=== PATIENT | male | born 1975 | race Caucasian/White ===

== ENCOUNTER 2024-07-07 08:32 | Outpatient (AMB) | payer OTHER, SELFPAY ==
--- NOTE | 2024-07-07 08:39 | AM.OFFWIN_ITS ---
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 Patient Tobacco Use Status: Former Tobacco user Allergies No Known Allergies Allergy (Verified 07/07/24 08:39) Do you need a note to return to daycare/school/sports/work: No HPI HPI Comments History of Present Illness Details History of Present Illness - The patient is a 49-year-old male pres enting with left knee pain. - Incident occurred 3 to 4 weeks ago whe n the patient misstepped on stairs and heavily landed on the left leg, resulting in immediate knee pain and swelling centered around the kneecap. - The knee pain is aggravated by prolong ed static positions and has not improved with ibuprofen. - Patient reports extreme elevation in b lood pressure readings, that have not always been this high , with no associated symptoms such as dizziness, chest pain, shortness of breath or headache, suggestive of poorly managed hypertension. He tells me he feels fine and has not had meds since at least [id number]. - Previous antihypertensive treatment di scontinued, patient unable to specify prior medications. Said he got RX's filled at [facility] in . - Attempts to reestablish care with a pr imary provider delayed due to Joan dropping [employer], resulting in several years of untreated hypertension. Physical Exam General: Cooperative, healthy appearing, comfortable, no acute distress and well developed Orientation: Patient oriented x3 Limitations: Limping on the left leg due to knee pain Head: Normal to inspection Ears: Hearing grossly normal bilaterally Nose: Normal external nose present Face and sinus: Normal facial exam Eyes: Appearance normal, both eyes and all related structures Neck: Normal visual inspection and Yes full ROM Respiratory: Normal respiratory effort and able to speak in complete sentences. Skin: No rashes or lesions noted Neuro: Patient oriented x3 Extremities: slight swelling and pain around the left inferior and medial knee, TTP medial joint line. Able to walk but with a limp. No joint laxity noted. PFSH Social History Patient Tobacco Use Status: Former Tobacco user Review of Systems Const All systems reviewed & are unremarkable except as noted in HPI and below Physical Exam Vital Signs: Last Vital Signs Pulse 98 07/07/24 08:40 BP 200/120 H 07/07/24 08:40 Pulse Ox 97 07/07/24 08:40 Oxygen Delivery Method Room Air 07/07/24 08:40 Assessment & Plan Assessment & Plan (1) Knee pain, left: Code(s): M25.562 - Pain in left knee Qualifiers: Chronicity: acute Qualified Code(s): M25.562 - Pain in left knee Plan: Plan The patient has been advised to manage left knee trauma through support bandaging, rest, and the use of Naproxen, while abstaining from physically strenuous activities. Monitoring the condition's progression and considering orthopedic evaluation if symptoms persist are important. Patient was informed and verbally consented to the use of an ambient scribe for clinic note documentation during this visit. (2) Severe uncontrolled hypertension: Code(s): I10 - Essential (primary) hypertension Plan: Patient is asymptomatic with unmedicated and uncontrolled hypertension due to lack of PCP. I was able to coordinate with a primary care provider for the patient tomorrow at 3:30pm to establish care and begin antihypertensive therapy resumption, labs, etc... I attempted to re-establish contact with pharmacy records for prior prescriptions could assist in formulating an effective treatment plan however Violette in couldn't find the records. The patient is informed of the significant risk associated with unmanaged hypertension and reassured of coordinated efforts to expedite follow-up care. Advised to go to [facility] ED if he develops headaches, dizzyiness, chest pain or shortness of breath. Patient was informed and verbally consented to the use of an ambient scribe for clinic note documentation during this visit. Coding Level of Care Code New Pt Level 4 (13713) Diagnoses Acute pain of left knee M25.562 Chronicity: acute Severe uncontrolled hypertension I10
[2024-07-07 08:40] VITALS: BP 200/120; PULSE 98; O2SAT 97
== END 2024-07-07 09:19 | disposition home or self-care (01) ==
PROVIDERS: Visit Provider Physician Assistant
DX: M25.562 Pain in left knee (principal); I10 Essential (primary) hypertension

== ENCOUNTER 2024-07-08 15:20 | Outpatient (AMB) | payer OTHER, SELFPAY ==
--- NOTE | 2024-07-08 15:24 | A.OFFPC_ITS ---
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 Intake Note: patient here for new patient visit c/o high blood pressure and left knee pain Campaign Manager Required: No Allergies No Known Allergies Allergy (Verified 07/08/24 15:48) Medication List - Last Reconciled 07/08/24 by Sharmin Leo CNP No Known Home Meds Tobacco use date assessed: 07/08/24 Dental Screening Dental Screen Date: 07/08/24 Did you have a dental visit in the last 12 months?: Yes Did you have a dental problem in the last 6 months where you did not have access to dental care?: No Was dental information given to patient?: Patient has dentist HPI HPI Comments History of Present Illness Details 49-year-old male presents to establish c are Prior PCP? - [facility] Last office visit/CPE/labs - About 7 years ago Acute issue(s) - Left knee pain x 3 weeks. Pain started while going downstairs in his home and inadvertently stepped down two set of stairs instead of one with his left knee. The pain is provoked by bending of the knee while standing. Denies tingling, nu mbness, or loss of sensation. He was seen at the [facility] walk-in clinic yesterday. X-ray was done done due to x-ray machine being down. - HTN: was on antihypertensives until . Denies history headaches, visual disturbances, or chest pain. Was evaluated for hypertension at the [facility] walk-in clinic yesterday and was referred here today to establish care and treatment of his hypertension. Past Medical History - HTN Surgical History - Right knee arthroscopic surgery 2013 Family History - Dad: BEATRIZ - Mom: Hypertension, alcohol abuse, cerv ical cancer - PGM: Dementia Social History - Former smoker, smoked 0.5 ppd x 10-15 yrs, quit in 2003. Does not vape. Drinks 1 glass of vodka daily x 5 day/wk. Denies recreational drug use - Has been making healthy dietary choice s, including low sodium. Active but does not exercise routinely. Has trouble maintaining asleep but not falling asleep; he snores but has never had a sleep study Health maintenance - Last eye exam was 5 years ago. 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 - Last dental visit was within the past 6 months; he follows up every 6 months - Last tetanus vaccine was more than 10 years ago; declines vaccination at this time - Has not been vaccinated for the flu ; declines vaccination at this time [facility] Medical History (Updated 07/08/24 @ 16:31 by Sharmin Leo CNP) High blood pressure Surgical History (Updated 07/08/24 @ 15:42 by Renetta Auguste) History of knee surgery Family History (Updated 07/08/24 @ 15:44 by Renetta Auguste) Mother Alcohol abuse High blood pressure Cervical cancer Father Substance abuse Paternal Grandmother FH: mental illness Sister Asthma Social History Housing: House Patient Tobacco Use Status: Former Tobacco user Cigarette Packs Per Day: 0.5 Cigarettes Per Day: 10 e-Cigarette/Vaping Use: Never Used Second Hand Smoke Exposure: Yes service: No Current occupational status: employed Current occupation: [employer] Current occupational exposures/hazards: No Cognitive needs: No Hearing needs: No Vision needs: No Questionnaire PHQ-9 Over the last 2 weeks, how often have you been bothered by any of the following problems? 1. Little interest or pleasure in doing things: not at all 2. Feeling down, depressed, or hopeless: not at all 3. Trouble falling or staying asleep, or sleeping too much: several days 4. Feeling tired or having little energy: not at all 5. Poor appetite or overeating: not at all 6. Feeling bad about yourself - or that you are a failure or have let yourself or your family down: not at all 7. Trouble concentrating on things, such as reading the newspaper or watching television: not at all 8. Moving or speaking so slowly that other people could have noticed. Or the opposite - being so fidgety or restless that you have been moving around a lot more than usual: not at all 9. Thoughts that you would be better off or of hurting yourself in some way: not at all Total score: 1 Depression Screening Interpretation: Negative Depression Screening Done: Yes 85442 - PHQ-9 Billing: Yes Source: Developed by Drs. Mahamed Rodriguez, Elyse Donaldson, Micheal Grullon and colleagues, with an educational amirah from [employer]. Thrive Questionnaire Date Thrive assessed: 07/08/24 I am a: Patient What is your living situation today?: I have a steady place to live Within the past 12 months, did the food you bought not last and you didn't have the money to get more?: Never true Within the past 12 months, did you worry whether your food would run out before you got money to buy more?: Never true Do you have trouble paying for medicines?: No Do you have trouble getting transportation to medical appointments?: No Do you have trouble paying your heating and electricity bill?: No Do you have trouble taking care of your child, family member or friend?: No Do you have trouble with day-to-day activities such as bathing, preparing meals, shopping, managing finances, etc.?: No Are you currently unemployed and looking for a job?: No Are you interested in more education?: No Please select the resources that you would like help with: None Currently or been in a relationship where the following occur: I choose not to answer THRIVE Score: 0 AUDIT C Alcohol Use Questionnaire (AUDIT-C) 1. How often do you have a drink containing alcohol?: 2-3 times a week 2. How many drinks containing alcohol do you have on a typical day when you are drinking?: 1 or 2 3. How often do you have six or more drinks on one occasion?: Never Total Score: 3 Score Reviewed/Action Taken: Yes COREEN-7 AMB Questionnaire COREEN-7 Date COREEN - 7 assessed: 07/08/24 Feeling nervous, anxious, or on edge: 0 = Not at all Not being able to stop or control worryin = Not at all Worrying too much about different things: 0 = Not at all Trouble relaxin = Several days Being so restless that it is hard to sit still: 0 = Not at all Becoming easily annoyed or irritable: 0 = Not at all Feeling afraid as if something awful might happen: 0 = Not at all Total COREEN-7 score (0-4 normal; 5-9 mild; 10-14 moderate; 15-21 severe): 1 Source: Developed by Drs. Mahamed Rodriguez, Elyse Donaldson, Micheal Grullon and colleagues, with an educational amirah from [employer]. COREEN-7 Assessment Billing COREEN-7 Assessment Tool: COREEN-7 Assessment 64398 Review of Systems Const Details: Const Denies chills, Denies fatigue, Denies fever(s), Denies headache(s) and Denies weakness ENT Denies dizziness and Denies headache(s) Card Denies chest pain, Denies lightheadedness, Denies dyspnea and Denies other (Palpitations) Resp Denies cough, Denies dyspnea, Denies wheezing and Denies other ( shortness of breath) GI Denies abdominal pain, Denies melena, Denies hematochezia, Denies change in bowel habits, Denies dyspepsia and Denies nausea Denies hematuria and Denies dysuria Musc Reports as per HPI Skin/Breast Denies rash, Denies unusual bruising and Denies wounds Neuro Denies abnormal gait, Denies dizziness, Denies headache(s), Denies memory loss, Denies numbness, Denies Sensory deficit (Neuro), Denies tingling and Denies weakness Psych Denies anxiety, Denies depression, Denies memory loss Endo Denies cold intolerance, Denies fatigue, Denies heat intolerance, Denies polydipsia and Denies polyuria Aller/Immun Denies wheezing Physical exam (Primary Care) Vital Signs: Last Vital Signs Temp 97.9 F 07/08/24 15:34 Pulse 104 H 07/08/24 16:06 Resp 16 07/08/24 15:34 BP 220/140 H 07/08/24 16:06 Pulse Ox 96 07/08/24 15:34 Oxygen Delivery Method Room Air 07/08/24 15:34 BMI result Body Mass Index 38.5 Tobacco/Smoking Status: Tobacco use Status Tobacco use date assessed 07/08/24 07/08/24 15:34 Patient Tobacco Use Status Former Tobacco user 07/08/24 15:26 e-Cigarette/Vaping Use Never Used 07/08/24 15:34 PHQ-9: PHQ-9 Score PHQ-9: Total score 1 07/08/24 15:53 Depression Screening Interpretation: Negative Thrive Assessment: Date of Thrive Assessment Date Thrive assessed 07/08/24 07/08/24 15:26 Currently or been in a relationship where the following occur: I choose not to answer Const Other: General: no acute distress and well developed Nutritional Appearance: well nourished Orientation/consciousness: patient oriented x3 HENMT Head: Yes normocephalic and Yes atraumatic Eyes General: appearance normal, both eyes and all related structures Pupils: Equal, round and reactive pupils present EOM: EOMs intact bilaterally Resp Effort & Inspection: normal respiratory effort Auscultation: clear to auscultation bilaterally Cardio Rate: regular rate Rhythm: regular rhythm Heart sounds: S1 normal heart sound present, S2 normal heart sound present, no gallops, no murmurs and no rubs GI Palpation (GI): No Abdominal aortic bruit present, Soft to palpation, nontender, No hepatosplenomegaly present and No Rebound tenderness present Auscultation: normal bowel sounds General: Yes no CVA tenderness Back/Spine/Pelvis Back: no CVA tenderness Cervical Spine: cervical ROM normal and No Cervical spine tenderness Thoracic/Lumbar Spine: thoraco-lumbar ROM normal, No pain with thoraco-lumbar RO M, No thoracic spinal tenderness and No lumbar spinal tenderness Extrem Left knee: Left anterior knee with slight erythema and edema. Skin General: warm and dry. Normal skin color. Normal skin turgor Neuro General: patient oriented x3, gait normal and no focal neuro deficit Cranial nerves: Yes Equal, round and reactive pupils present Cognition (Neuro): normal cognition Gait exam (Neuro): Normal gait present Sensory Exam: No Sensory deficit (Neuro) Psych Appearance: grossly normal Affect: normal affect Attitude: cooperative Thought process: Normal thought process present Coding Level of Care Code New Pt Level 5 (50773) Diagnoses Severe uncontrolled hypertension I10 Acute pain of left knee M25.562 Chronicity: acute Sleep disturbance G47.9 Snoring R06.83 Laboratory tests ordered as part of a complete physical exam (CPE) Z00.00 Additional Codes COREEN-7 Assessment Billing - COREEN-7 Assessment Tool: COREEN-7 Assessment 92392 ([id number]) PHQ-9 - 09655 - PHQ-9 Billing: Yes ([id number]) Assessment & Plan Assessment & Plan (1) Severe uncontrolled hypertension: Code(s): I10 - Essential (primary) hypertension Category: Medical Plan: History of hypertension. He was on antihypertensives until 2017. No associated headaches, visual disturbances, or chest pain. Resting blood pressure is 220/140, above goal of less than 140/90. Heart rate is 104. His mother has history of hypertension which may be a contributing factor. He Drinks 1 glass of vodka daily x 5 day/wk which could increase his blood pressure. Encouraged to significantly cut down on his alcohol intake. Clonidine 0.2 mg given stat. However, his blood pressure remained 220/140 20-30 minutes after taking the medication. Best recommendation is for him to go to the ED for IV medication treatment to lower his blood pressure after which he can be managed outpatient. However, the patient refused to go to the ED, despite potential complications such as stroke. He agrees to have his blood pressure treated by his PCP with close monitoring. Metoprolol 50 mg twice daily ordered; advised to take as prescribed. Low-sodium diet encouraged. Follow-up in 2 days or sooner with symptoms such as severe headache, visual disturbances, or chest pain. Verbalized understanding and agreed with the plan. (2) Knee pain, left: Code(s): M25.562 - Pain in left knee Category: Medical Qualifiers: Chronicity: acute Qualified Code(s): M25.562 - Pain in left knee Plan: Left anterior knee pain x 3 weeks. Injured while climbing down the staircase in his home, he missed a step. Pain is provoked by bending of the knee while standing. X-ray has not been done. He has been taking Aleve OTC without relief. Left anterior knee with slight erythema and edema. Will start naproxen 500 mg twice daily as needed; advised to take as prescribed and with food. Warm/cool compresses encouraged. Avoid strenuous activities until healed. X-ray ordered. Will review results and make changes as needed. Follow-up with worsening or new symptoms. Verbalized understanding and agreed with treatment plan. (3) Sleep disturbance: Code(s): G47.9 - Sleep disorder, unspecified Category: Medical Plan: Difficulty maintaining asleep but not falling asleep. Snores but has never had a sleep study. Instructed on sleep hygiene. May take melatonin as needed. Referred to [facility] [place] [facility] for a sleep study. Follow-up with worsening or new symptoms. Verbalized understanding and agreed with treatment plan. (4) Snoring: Code(s): R06.83 - Snoring Category: Medical Plan: Plan as above. (5) Laboratory tests ordered as part of a complete physical exam (CPE): Code(s): Z00.00 - Encounter for general adult medical examination without abnormal findings Category: Medical Plan: Fasting labs ordered as part of a complete physical exam. Advised to fast for at least 10 hours before getting labs drawn. May drink water Verbalized understanding and agreed with treatment plan. Orders: Orders Comprehensive [place]. Panel Fast Today Z00.00 - Encounter for general adult medical examination without abnormal findings UA CC w/rflx Micro + Cult Today Z00.00 - Encounter for general adult medical examination without abnormal findings Microalbumin, Random (w Creat) Today Z00.00 - Encounter for general adult medical examination without abnormal findings Complete Blood Count Auto Diff Today Z00.00 - Encounter for general adult medical examination without abnormal findings Lipid Panel Today Z00.00 - Encounter for general adult medical examination without abnormal findings TSH reflex Free T4 Today Z00.00 - Encounter for general adult medical examination without abnormal findings XR knee LT 2V Today M25.562 - Pain in left knee Referrals Sleep Medicine Referral G47.9 - Sleep disorder, unspecified, R06.83 - Snoring Medications: New naproxen 500 mg PO BID PRN 60 tabs 0RF pain metoprolol tartrate 50 mg PO Q12H 30 days 60 tabs 1RF
[2024-07-08 15:34] VITALS: BP 237/136; PULSE 104; RESP 16; TEMP 36.6; O2SAT 96; BMI 38.5
[2024-07-08 16:06] VITALS: BP 220/140; PULSE 104
== END 2024-07-08 17:18 | disposition home or self-care (01) ==
PROVIDERS: PCP Nurse Practitioner Family; Visit Provider Nurse Practitioner Family
DX: I10 Essential (primary) hypertension (principal); M25.562 Pain in left knee; G47.9 Sleep disorder, unspecified; R06.83 Snoring

== ENCOUNTER → 2024-07-08 15:20 | Outpatient (BNVA) | payer OTHER, SELFPAY | PROVIDERS: Visit Provider Nurse Practitioner Family | DX: Z76.89 Persons encountering health services in other specified circumstances (principal); I10 Essential (primary) hypertension; M25.562 Pain in left knee; G47.9 Sleep disorder, unspecified; R06.83 Snoring | CPT/HCPCS: 96127 ==

== ENCOUNTER 2024-07-10 15:13 | Outpatient (AMB) | payer OTHER, SELFPAY ==
--- NOTE | 2024-07-10 15:18 | MHC.PC.OV ---
Vital Signs 07/10/24 15:23 07/10/24 15:50 Height 5 ft 7 in Weight 244 lb 6 oz BMI 38.3 BP 198/130 H 190/120 H Blood Pressure Location Rt brachial Rt brachial Position Sitting Sitting Respiration 16 Pulse 95 Pulse Source Pulse Oximeter Temp 98.6 F Temp Source Oral Pulse Oximetry (%) 97 Oxygen Delivery Method Room Air Intake Visit Reasons: 2 days HTN, labs review Intake Note: patient here to follow up on HTN did not get blood work Box Maker Wood Required: No Allergies No Known Allergies Allergy (Verified 07/10/24 15:46) Medication List - Last Reconciled 07/10/24 by Sharmin Leo CNP metoprolol tartrate 50 mg PO Q12H 30 days naproxen 500 mg PO BID PRN Tobacco use date assessed: 07/10/24 Dental Screening Dental Screen Date: 07/10/24 Did you have a dental visit in the last 12 months?: Yes Did you have a dental problem in the last 6 months where you did not have access to dental care?: No Was dental information given to patient?: Patient has dentist HPI HPI Comments History of Present Illness Details 49-year-old male presents for hypertension and review of recent labs reveals follow-up. 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 So far he has only had 2 doses of the medication. He noticed some improvement to his left knee since he started naproxen. He reports pain with ambulation and movement and no pain at rest. He did not get lab work done as planned for this visit. [facility] Medical History (Updated 07/10/24 @ 16:08 by Sharmin Leo CNP) High blood pressure Surgical History (Updated 07/08/24 @ 15:42 by Renetta Auguste) History of knee surgery Family History (Updated 07/08/24 @ 15:44 by Renetta Auguste) Mother Alcohol abuse High blood pressure Cervical cancer Father Substance abuse Paternal Grandmother FH: mental illness Sister Asthma Social History Housing: House Patient Tobacco Use Status: Former Tobacco user Cigarette Packs Per Day: 0.5 Cigarettes Per Day: 10 e-Cigarette/Vaping Use: Never Used Second Hand Smoke Exposure: Yes service: No Current occupational status: employed 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 Current occupational exposures/hazards: No Cognitive needs: No Hearing needs: No Vision needs: No Questionnaire Thrive Questionnaire Date Thrive assessed: 07/08/24 I am a: Patient What is your living situation today?: I have a steady place to live Within the past 12 months, did the food you bought not last and you didn't have the money to get more?: Never true Within the past 12 months, did you worry whether your food would run out before you got money to buy more?: Never true Do you have trouble paying for medicines?: No Do you have trouble getting transportation to medical appointments?: No Do you have trouble paying your heating and electricity bill?: No Do you have trouble taking care of your child, family member or friend?: No Do you have trouble with day-to-day activities such as bathing, preparing meals, shopping, managing finances, etc.?: No Are you currently unemployed and looking for a job?: No Are you interested in more education?: No Please select the resources that you would like help with: None Currently or been in a relationship where the following occur: I choose not to answer THRIVE Score: 0 COREEN-7 AMB Questionnaire COREEN-7 Date COREEN - 7 assessed: 07/08/24 Source: Developed by Drs. Mahamed Rodriguez, Elyse Donaldson, Micheal Grullon and colleagues, with an educational amirah from [employer]. Review of Systems Const Details: Const Denies chills, Denies fatigue, Denies fever(s), Denies headache(s) and Denies weakness ENT Denies dizziness and Denies headache(s) Card Denies chest pain, Denies lightheadedness, Denies dyspnea and Denies other (Palpitations) Resp Denies cough, Denies dyspnea, Denies wheezing and Denies other ( shortness of breath) GI Denies abdominal pain, Denies melena, Denies hematochezia, Denies change in bowel habits, Denies dyspepsia and Denies nausea Denies hematuria and Denies dysuria Musc Reports left knee pain, Denies abnormal gait, Denies numbness and Denies tingling Skin/Breast Denies rash, Denies unusual bruising and Denies wounds Neuro Denies abnormal gait, Denies dizziness, Denies headache(s), Denies memory loss, Denies numbness, Denies Sensory deficit (Neuro), Denies tingling and Denies weakness Psych Denies anxiety, Denies depression, Denies memory loss Endo Denies cold intolerance, Denies fatigue, Denies heat intolerance, Denies polydipsia and Denies polyuria Aller/Immun Denies wheezing Physical exam (Primary Care) Vital Signs: Last Vital Signs Temp 98.6 F 07/10/24 15:23 Pulse 95 07/10/24 15:23 Resp 16 07/10/24 15:23 BP 198/130 H 07/10/24 15:23 Pulse Ox 97 07/10/24 15:23 Oxygen Delivery Method Room Air 07/10/24 15:23 BMI result Body Mass Index 38.3 Tobacco/Smoking Status: Tobacco use Status Tobacco use date assessed 07/10/24 07/10/24 15:27 Patient Tobacco Use Status Former Tobacco user 07/10/24 15:20 e-Cigarette/Vaping Use Never Used 07/10/24 15:20 Thrive Assessment: Date of Thrive Assessment Date Thrive assessed 07/08/24 07/10/24 15:20 Currently or been in a relationship where the following occur: I choose not to answer Const Other: General: no acute distress and well developed Nutritional Appearance: well nourished Orientation/consciousness: patient oriented x3 HENMT Head: Yes normocephalic and Yes atraumatic Eyes General: appearance normal, both eyes and all related structures Pupils: Equal, round and reactive pupils present EOM: EOMs intact bilaterally Resp Effort & Inspection: normal respiratory effort Auscultation: clear to auscultation bilaterally Cardio Rate: regular rate Rhythm: regular rhythm Heart sounds: S1 normal heart sound present, S2 normal heart sound present, no gallops, no murmurs and no rubs GI Palpation (GI): No Abdominal aortic bruit present, Soft to palpation, nontender, No hepatosplenomegaly present and No Rebound tenderness present Auscultation: normal bowel sounds General: Yes no CVA tenderness Back/Spine/Pelvis Back: no CVA tenderness Cervical Spine: cervical ROM normal and No Cervical spine tenderness Thoracic/Lumbar Spine: thoraco-lumbar ROM normal, No pain with thoraco-lumbar ROM, No thoracic spinal tenderness and No lumbar spinal tenderness Extrem General: Yes normal to inspection, No edema and No calf tenderness Skin General: warm and dry. Normal skin color. Normal skin turgor Neuro General: patient oriented x3, gait normal and no focal neuro deficit Cranial nerves: Yes Equal, round and reactive pupils present Cognition (Neuro): normal cognition Gait exam (Neuro): Normal gait present Sensory Exam: No Sensory deficit (Neuro) Psych Appearance: grossly normal Affect: normal affect Attitude: cooperative Thought process: Normal thought process present Office Procedures EKG Details: EKG in the office revealed left ventricular hypertrophy with prolonged QTC, 486 ms. [id number], Complete Coding Level of Care Code Est Pt Level 4 (77059) Diagnoses High blood pressure I10 Left ventricular hypertrophy I51.7 Acute pain of left knee M25.562 Chronicity: acute CPT Codes EKG - CPT: [id number], Complete ([id number]) Assessment & Plan Assessment & Plan (1) High blood pressure: Code(s): I10 - Essential (primary) hypertension Category: Medical Plan: Resting blood pressure is 198/130, above goal of less than 140/90. He is on metoprolol 50 mg twice daily and has had 2 doses so far. Advised to continue to take metoprolol as prescribed. Low-sodium diet encouraged. Encouraged to get lab work done before next visit. Follow-up in 4 days or sooner with worsening or new symptoms. Verbalized understanding and agreed with treatment plan. (2) Left ventricular hypertrophy: Code(s): I51.7 - Cardiomegaly Category: Medical Plan: EKG in the office revealed left ventricular hypertrophy with prolonged QTC, 486 ms. Patient is asymptomatic. Echocardiogram ordered. Will review results and make changes as needed. May referred to Cardiology. Follow-up as planned. Verbalized understanding and agreed with treatment plan. (3) Knee pain, left: Code(s): M25.562 - Pain in left knee Category: Medical Qualifiers: Chronicity: acute Qualified Code(s): M25.562 - Pain in left knee Plan: Continue current treatment regimen. Advised to get x-ray done. Verbalized understanding and agreed with plan. Orders: Orders AMB EKG-In Office Today I10 - Essential (primary) hypertension CA echo transthoracic complete Today I51.7 - Cardiomegaly
[2024-07-10 15:23] VITALS: BP 198/130; PULSE 95; RESP 16; TEMP 37; O2SAT 97; BMI 38.3
[2024-07-10 15:50] VITALS: BP 190/120
== END 2024-07-10 16:08 | disposition home or self-care (01) ==
PROVIDERS: PCP Nurse Practitioner Family; Visit Provider Nurse Practitioner Family
DX: I10 Essential (primary) hypertension (principal); I51.7 Cardiomegaly; M25.562 Pain in left knee

== ENCOUNTER → 2024-07-10 15:13 | Outpatient (BNVA) | payer OTHER, SELFPAY | PROVIDERS: PCP Nurse Practitioner Family; Visit Provider Nurse Practitioner Family | DX: I11.9 Hypertensive heart disease without heart failure (principal); M25.562 Pain in left knee | CPT/HCPCS: 93005 ==

== ENCOUNTER 2024-07-12 07:34 | Outpatient (REF) | payer OTHER, SELFPAY ==
--- NOTE | ~2024-07-12 | XR_ITS ---
EXAMINATION: XR KNEE 1-2 VIEWS LEFT HISTORY: M25.562 - Pain in left knee COMPARISON: There are no prior studies available for comparison. FINDINGS: AP and lateral views of the left knee are submitted. Osseous mineralization is normal. There is no fracture or dislocation. The joint spaces are preserved. The soft tissues are unremarkable. There is no joint effusion. XR/XR knee LT 2V IMPRESSION: Unremarkable examination of the left knee. Electronically signed by: Mahamed Sawyer MD 07/15/2024 09:13 AM CATHY
== END 2024-07-12 07:35 | disposition home or self-care (01) ==
LOC: HO.XRAY 07:34
PROVIDERS: Visit Provider Nurse Practitioner Family
DX: M25.562 Pain in left knee (principal)
CPT/HCPCS: 73560

== ENCOUNTER → 2024-07-12 07:46 | Outpatient (BNV) | payer OTHER, SELFPAY | PROVIDERS: Visit Provider Radiology Diagnostic Radiology | DX: M25.562 Pain in left knee (principal) | CPT/HCPCS: 73560 ==

== ENCOUNTER 2024-07-15 07:31 | Outpatient (REF) | payer OTHER, SELFPAY ==
[2024-07-15 11:30] LABS: MANUAL DIFF FLAG NO
[2024-07-15 11:35] LABS: Basophils Absolute Auto 0.1 X10*3/uL (0.0-0.2); Basophils Percent Auto 1.2 % (0-2); Eosinophils Absolute Auto 0.2 X10*3/uL (0.0-0.4); Eosinophils Percent Auto 3.5 % (0-4); Hematocrit 48.8 % (42.0-52.0); Imm Gran Abs Auto 0.03 X10*3/uL (0.00-0.03); Imm Gran Pct Auto 0.5 % (0.0-0.4); Lymphocytes Absolute Auto 1.7 X10*3/uL (1.2-4.9); Lymphocytes Percent Auto 24.9 % (20-40); Mean Corpuscular HGB Conc 32.8 g/dl (31.0-36.0); Mean Corpuscular Hemoglobin 31.5 pg (27.0-33.0); Mean Corpuscular Volume 96.1 fL (80.0-98.0); Mean Platelet Volume 11.1 fL (9.4-12.4); Monocytes Absolute Auto 0.7 X10*3/uL (0.1-1.2); Monocytes Percent Auto 10.7 % (2-11); Neutrophils Absolute Auto 3.9 x10*3/uL (2.0-8.3); Neutrophils Percent Auto 59.2 % (45-73); Platelet Count 248 X10*3/uL (160-400); Red Blood Count 5.08 X10*6/uL (4.60-5.80); Red Cell Distribution Width 13.7 % (11.0-16.0); White Blood Count 6.6 X10*3/uL (4.8-10.8)
[2024-07-15 11:49] LABS: Appearance Urine Clear; Color Urine Yellow; Glucose Urine UA Negative (Negative); Leukocyte Esterase Urine Negative (Negative); Nitrite Urine Negative (Negative); PH 6.5 (5.0-9.0); Specific Gravity - Urine 1.015 (1.005-1.025); UMIC TRIGGER UACC YES; Urine Blood Small (1+) (Negative); Urine Ketones Negative (Negative); Urine Protein 100 (2+) mg/dL (Neg-Trace)
[2024-07-15 11:52] LABS: Bacteria Urine None Seen (None Seen); Hyaline Casts Urine 0-2 /LPF (0-2); Squamous Epithelial Cell Urine 0-2 /HPF (0-2); WBC Urine 0-5 /HPF (0-5)
[2024-07-15 12:27] LABS: Creatinine Urine 92.07 mg/dL
[2024-07-15 12:27] LABS: Alanine Aminotransferase 50 U/L (0-40); Albumin Level 4.1 g/dL (3.5-5.0); Alkaline Phosphatase 54 U/L (39-117); Anion Gap 12 (12-20); Aspartate Amino Transferase 43 U/L (5-37); Bilirubin Total 0.3 mg/dL (0.0-1.0); Blood Urea Nitrogen 17 mg/dL (9-16); Calcium 9.6 mg/dL (8.4-10.2); Carbon Dioxide 31 mmol/L (22-29); Chloride 101 mmol/L (96-108); Cholesterol 205 mg/dL (<200); Estimated Glomerular Filt Rate > 60; Glucose Fasting 103 mg/dL (60-99); HDL Cholesterol 42 mg/dL (>40); LDL Cholesterol Calculated 135 mg/dL (<100); Sodium 140 mmol/L (135-145); Triglycerides 144 mg/dL (<150)
[2024-07-15 12:42] LABS: TSH reflex Free T4 1.57 uIU/mL (0.32-4.0)
== END 2024-07-15 07:32 | disposition home or self-care (01) ==
LOC: HO.WFDLDS 07:31
PROVIDERS: Visit Provider Nurse Practitioner Family
DX: Z00.00 Encounter for general adult medical examination without abnormal findings (principal)
CPT/HCPCS: 36415; 80053; 80061; 81001; 82043; 82570; 84443; 85025

== ENCOUNTER 2024-07-15 12:52 | Outpatient (AMB) | payer OTHER, SELFPAY ==
--- NOTE | 2024-07-15 12:55 | A.OFFPC_ITS ---
Vital Signs 07/15/24 12:59 07/15/24 13:18 Height 5 ft 7 in Weight 245 lb 6 oz BMI 38.4 BP 223/132 H 200/120 H Blood Pressure Location Rt brachial Lt brachial Position Sitting Sitting Respiration 16 Pulse 90 88 Pulse Source Pulse Oximeter Auscultation Temp 98.0 F Temp Source Oral Pulse Oximetry (%) 98 Oxygen Delivery Method Room Air Intake Visit Reasons: 4 days HTN Intake Note: patient here for blood pressure follow up Emergency Management Specialist Required: No Allergies No Known Allergies Allergy (Verified 07/15/24 13:15) Medication List - Last Reconciled 07/15/24 by Sharmin Leo CNP metoprolol tartrate 50 mg PO Q12H 30 days naproxen 500 mg PO BID PRN Tobacco use date assessed: 07/15/24 Dental Screening Dental Screen Date: 07/15/24 Did you have a dental visit in the last 12 months?: Yes Did you have a dental problem in the last 6 months where you did not have access to dental care?: No Was dental information given to patient?: Patient has dentist HPI HPI Comments History of Present Illness Details 49-year-old male presents for hypertensi on and review of recent lab results. He admits to taking metoprolol as prescribed without adverse reactions. He notes that his left knee pain has not improved. He continues to experience pain with ambulation and movements but no pain at rest. He has been making healthy dietary choices, including low-sodium diet. However, his does not drink enough water. He drinks 1 glass of vodka daily x 5 day/wk. [facility] Medical History (Updated 07/15/24 @ 13:03 by Sharmin Leo CNP) High blood pressure Surgical History (Updated 07/08/24 @ 15:42 by Renetta Auguste) History of knee surgery Family History (Updated 07/08/24 @ 15:44 by Renetta Auguste) Mother Alcohol abuse High blood pressure Cervical cancer Father Substance abuse Paternal Grandmother FH: mental illness Sister Asthma Social History Housing: House Patient Tobacco Use Status: Former Tobacco user Cigarette Packs Per Day: 0.5 Cigarettes Per Day: 10 e-Cigarette/Vaping Use: Never Used Second Hand Smoke Exposure: Yes service: No Current occupational status: employed 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 Current occupational exposures/hazards: No Cognitive needs: No Hearing needs: No Vision needs: No Questionnaire Thrive Questionnaire Date Thrive assessed: 07/08/24 I am a: Patient What is your living situation today?: I have a steady place to live Within the past 12 months, did the food you bought not last and you didn't have the money to get more?: Never true Within the past 12 months, did you worry whether your food would run out before you got money to buy more?: Never true Do you have trouble paying for medicines?: No Do you have trouble getting transportation to medical appointments?: No Do you have trouble paying your heating and electricity bill?: No Do you have trouble taking care of your child, family member or friend?: No Do you have trouble with day-to-day activities such as bathing, preparing meals, shopping, managing finances, etc.?: No Are you currently unemployed and looking for a job?: No Are you interested in more education?: No Please select the resources that you would like help with: None Currently or been in a relationship where the following occur: I choose not to answer THRIVE Score: 0 COREEN-7 AMB Questionnaire COREEN-7 Date COREEN - 7 assessed: 07/08/24 Source: Developed by Drs. Mahamed Rodriguez, Elyse Donaldson, Micheal Grullon and colleagues, with an educational amirah from [employer]. Review of Systems Const Details: Const Denies chills, Denies fatigue, Denies fever(s), Denies headache(s) and Denies weakness ENT Denies dizziness and Denies headache(s) Card Denies chest pain, Denies lightheadedness, Denies dyspnea and Denies other (Palpitations) Resp Denies cough, Denies dyspnea, Denies wheezing and Denies other ( shortness of breath) GI Denies abdominal pain, Denies melena, Denies hematochezia, Denies change in bowel habits, Denies dyspepsia and Denies nausea Denies hematuria and Denies dysuria Musc Denies abnormal gait, Denies myalgias, Denies arthralgias, Denies numbness and Denies tingling Skin/Breast Denies rash, Denies unusual bruising and Denies wounds Neuro Denies abnormal gait, Denies dizziness, Denies headache(s), Denies memory loss, Denies numbness, Denies Sensory deficit (Neuro), Denies tingling and Denies weakness Psych Denies anxiety, Denies depression, Denies memory loss Endo Denies cold intolerance, Denies fatigue, Denies heat intolerance, Denies polydipsia and Denies polyuria Aller/Immun Denies wheezing Physical exam (Primary Care) Vital Signs: Last Vital Signs Temp 98.0 F 07/15/24 12:59 Pulse 88 07/15/24 13:18 Resp 16 07/15/24 12:59 BP 200/120 H 07/15/24 13:18 Pulse Ox 98 07/15/24 12:59 Oxygen Delivery Method Room Air 07/15/24 12:59 BMI result Body Mass Index 38.4 Tobacco/Smoking Status: Tobacco use Status Tobacco use date assessed 07/15/24 07/15/24 13:05 Patient Tobacco Use Status Former Tobacco user 07/15/24 12:58 e-Cigarette/Vaping Use Never Used 07/15/24 12:58 Thrive Assessment: Date of Thrive Assessment Date Thrive assessed 07/08/24 07/15/24 12:58 Currently or been in a relationship where the following occur: I choose not to answer Const Other: General: no acute distress and well developed Nutritional Appearance: well nourished Orientation/consciousness: patient oriented x3 HENMT Head: Yes normocephalic and Yes atraumatic Eyes General: appearance normal, both eyes and all related structures Pupils: Equal, round and reactive pupils present EOM: EOMs intact bilaterally Resp Effort & Inspection: normal respiratory effort Auscultation: clear to auscultation bilaterally Cardio Rate: regular rate Rhythm: regular rhythm Heart sounds: S1 normal heart sound present, S2 normal heart sound present, no gallops, no murmurs and no rubs GI Palpation (GI): No Abdominal aortic bruit present, Soft to palpation, nontender, No hepatosplenomegaly present and No Rebound tenderness present Auscultation: normal bowel sounds General: Yes no CVA tenderness Back/Spine/Pelvis Back: no CVA tenderness Cervical Spine: cervical ROM normal and No Cervical spine tenderness Thoracic/Lumbar Spine: thoraco-lumbar ROM normal, No pain with thoraco-lumbar ROM, No thoracic spinal tenderness and No lumbar spinal tenderness Extrem General: Yes normal to inspection, No edema and No calf tenderness Skin General: warm and dry. Normal skin color. Normal skin turgor Neuro General: patient oriented x3, gait normal and no focal neuro deficit Cranial nerves: Yes Equal, round and reactive pupils present Cognition (Neuro): normal cognition Gait exam (Neuro): Normal gait present Sensory Exam: No Sensory deficit (Neuro) Psych Appearance: grossly normal Affect: normal affect Attitude: cooperative Thought process: Normal thought process present Coding Level of Care Code Est Pt Level 4 (53476) Diagnoses High blood pressure I10 Elevated fasting glucose R73.01 Transaminitis R74.01 Hypercholesterolemia E78.00 Microalbuminuria R80.9 Acute pain of left knee M25.562 Chronicity: acute Assessment & Plan Assessment & Plan (1) High blood pressure: Code(s): I10 - Essential (primary) hypertension Category: Medical Plan: Resting blood pressure is 200/120, above goal of less than 140/90. Heart rate is 88. Will increase metoprolol to 100 mg twice daily; advised to take as prescribed. Low-sodium diet and routine exercise encouraged. Follow-up in 1 week or sooner with symptoms or concerns. Verbalized understanding and agreed with treatment plan. (2) Elevated fasting glucose: Code(s): R73.01 - Impaired fasting glucose Category: Medical Plan: Recent fasting glucose is slightly elevated, 103. Healthy diet and routine exercise encouraged. Will recheck fasting glucose and make changes as needed. Verbalized understanding and agreed with the plan. (3) Transaminitis: Code(s): R74.01 - Elevation of levels of liver transaminase levels Category: Medical Plan: Recent AST an ALT levels are slightly elevated, 43 and 50 respectively. Alcohol fatty liver disease is likely. Encouraged to avoid or cut down on alcohol consumption. Will recheck lipid panel levels in 2 months. Verbalized understanding and agreed with treatment plan. (4) Hypercholesterolemia: Code(s): E78.00 - Pure hypercholesterolemia, unspecified Category: Medical Plan: Recent total cholesterol and LDL levels are slightly elevated, 205 and 135 respectively. Triglycerides and HDL levels are normal. Advised to limit foods high in saturated fat and avoid foods high in trans fat. Routine exercise encouraged. Will recheck lipid panel levels 2 months. Verbalized understanding and agreed with treatment plan. (5) Microalbuminuria: Code(s): R80.9 - Proteinuria, unspecified Category: Medical Plan: Recent urine microalbumin/creatinine ratio is significantly elevated, 328. Creatinine and GFR levels are normal. Likely due to hypertension or dehydration. He does not drinking of water. May improve with blood pressure control. Adequate hydration and adherence to hypertension management encouraged. Will recheck urine microalbumin/creatinine ratio in 2 months and make changes as needed. Verbalized understanding and agreed with treatment plan. (6) Knee pain, left: Code(s): M25.562 - Pain in left knee Category: Medical Qualifiers: Chronicity: acute Qualified Code(s): M25.562 - Pain in left knee Plan: Continued left knee pain despite taking naproxen as needed. He continues to experience pain with ambulation and movements but no pain at rest. No overt injury or trauma noted. Gait is steady. Recent x-ray of the left knee is unremarkable. Continue current treatment regimen. Ref[place] [facility]. Follow-up with worsening or new symptoms. Verbalized understanding and agreed with the plan. Orders: Orders Glucose Fasting Today R73.01 - Impaired fasting glucose Liver Panel 2 Months R74.01 - Elevation of levels of liver transaminase levels Microalbumin, Random (w Creat) 2 Months R80.9 - Proteinuria, unspecified Lipid Panel 2 Months E78.00 - Pure hypercholesterolemia, unspecified Referrals Orthopedics Referral M25.562 - Pain in left knee Medications: New metoprolol tartrate 100 mg PO Q12H 30 days 60 tabs 1RF Discontinued metoprolol tartrate Discontinued Reason: Doctor's Order 50 mg PO Q12H 30 days 60 tabs 1RF
[2024-07-15 12:59] VITALS: BP 223/132; PULSE 90; RESP 16; TEMP 36.7; O2SAT 98; BMI 38.4
[2024-07-15 13:18] VITALS: BP 200/120; PULSE 88
== END 2024-07-15 13:32 | disposition home or self-care (01) ==
PROVIDERS: PCP Nurse Practitioner Family; Visit Provider Nurse Practitioner Family
DX: I10 Essential (primary) hypertension (principal); R73.01 Impaired fasting glucose; R74.01 Elevation of levels of liver transaminase levels; E78.00 Pure hypercholesterolemia, unspecified; R80.9 Proteinuria, unspecified; M25.562 Pain in left knee

== ENCOUNTER 2024-07-21 14:24 | Outpatient (AMB) | payer OTHER, SELFPAY ==
[2024-07-21 15:09] VITALS: PULSE 91; O2SAT 97; BMI 38.7
--- NOTE | 2024-07-21 15:09 | MHC.OFFVIS ---
Vital Signs 07/21/24 15:09 Height 5 ft 7 in Weight 247 lb BMI 38.7 Pulse 91 Pulse Source Pulse Oximeter Pulse Oximetry (%) 97 Oxygen Delivery Method Room Air Intake Visit Reasons: INP-Snoring/Sleep dis Intake Note: Patient presents for inpatient referral- Snoring/Sleep disturbance. Allergies No Known Allergies Allergy (Verified 07/21/24 15:11) HPI Comments Details: 49 year old male with h/o hypertension referred for sleep evaluation by PCP. He had a fall 4 weeks ago and his L. Knee has been swollen, his xray was neg and is being followed by Ortho in August. His BP is elevated and being managed by Dr. Leo on Metropolol 100mg po daily. He complaints of daily fatigue, despite various sleep strategies. He goes to bed at midnight and wakes up at 7am with 1-2 bathroom breaks, however several nightly arousals due to his leg spasms. He has morning headaches and restless legs which cause him to toss and turn all night long. His c/o his snoring and witnessed apneas. He denies parasomnias however his c/o him talking in his sleep. He says his diet, mood and memory are all fine, and his trying to manage his weight and blood pressure. He is unable to walk but drinks plenty of water daily, has cut down on his alcohol intake and is a former smoker. 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 Current occupational exposures/hazards: No Cognitive needs: No Hearing needs: No Vision needs: No Physical Exam Vital Signs: Last Vital Signs Pulse 91 03/03/25 15:09 Pulse Ox 97 07/21/24 15:09 Oxygen Delivery Method Room Air 07/21/24 15:09 BMI result Body Mass Index 38.7 Const General: cooperative and comfortable Nutritional Appearance: obese Orientation/consciousness: patient oriented x3 HEENT Face and sinus: Yes normal facial exam and Yes face symmetric Teeth and gingiva: other ([place] score is 4) Eyes Pupils: Equal, round and reactive pupils present Neck Neck: Yes full ROM and Yes supple Resp Effort & Inspection: normal respiratory effort and able to speak in complete sentences Neuro General: patient oriented x3, moves all extremities and other (Limps and leans to the right. ) Cranial nerves: Yes CN's II-XII intact bilaterally, Yes Facial sensation intact/muscles of mastication intact, Yes Equal, round and reactive pupils present, Yes Normal accommodation reflex present, Yes Bilaterally intact EOM present, Yes Normal facial strength present, Yes Midline tongue present, Yes Ability to bilaterally rotate head present and Yes Ability to bilaterally elevate shoulders present Cognition (Neuro): normal cognition Gait exam (Neuro): Other gait observations present (Leans to the right d/t L. knee injury.) Motor exam (neuro): 5/5 motor strength present throughout and Normal motor muscle tone present throughout Deep tendon reflexes (DTR's): Right triceps reflex intensity grade: 2+, Left triceps reflex intensity grade: 2+, Rt Biceps (C5, C6): 2+, Left biceps reflex intensity grade: 2+, Right brachioradialis reflex intensity grade: 2+, Left brachioradialis reflex intensity grade: 2+, Right patellar reflex intensity grade: 2+ and Left patellar reflex intensity grade: 2+ Psych Appearance: grossly normal Attitude: cooperative Thought process: Normal thought process present Thought content: Normal thought content present Results Reviewed Results Reviewed: BMI 38.7 / BP is elevated on Metropolol 100mg PO daily -managed by PCP Assessment & Plan Assessment & Plan (1) Snoring: Code(s): R06.83 - Snoring Category: Medical (2) Severe uncontrolled hypertension: Code(s): I10 - Essential (primary) hypertension Category: Medical (3) Snoring: Code(s): R06.83 - Snoring Category: Medical (4) Severe uncontrolled hypertension: Code(s): I10 - Essential (primary) hypertension Category: Medical (5) Snoring: Code(s): R06.83 - Snoring Category: Medical (6) Fatigue due to sleep pattern disturbance: Code(s): R53.83 - Other fatigue; G47.9 - Sleep disorder, unspecified Category: Medical Plan HST to evaluate sleep Labs to r/o deficiencies Will Evaluate for RLS at next visit after ortho evaluation for L. knee. Orders: Orders Methylmalonic Acid Today G47.9 - Sleep disorder, unspecified, R53.83 - Other fatigue Vitamin D 25-OH Total Today I10 - Essential (primary) hypertension, R06.83 - Snoring Ferritin Today I10 - Essential (primary) hypertension, R06.83 - Snoring RT home sleep study Today G47.19 - Other hypersomnia Complete Blood Count no Diff Today R06.83 - Snoring Comprehensive Met. Panel Today G47.9 - Sleep disorder, unspecified, R06.83 - Snoring Hemoglobin A1c Today I10 - Essential (primary) hypertension Homocysteine Today I10 - Essential (primary) hypertension, R06.83 - Snoring Vitamin B12 and Folate Today G47.9 - Sleep disorder, unspecified, R53.83 - Other fatigue IRON PROFILE Today G47.9 - Sleep disorder, unspecified, R53.83 - Other fatigue Patient Instructions: Sleep Hygiene Provided: Sleep in a dark, cool environment, no devices in bed, may read and limit fluids 2 hours prior to bed. HTN Monitor and manage BP with Dr. Leo weekly. Dash Diet is recommended to decrease blood pressure. Diet and Exercise as tolerable. The #1 modifiable RF for CV events is management of blood pressure. Coding Level of Care Code New Pt Level 4 (65192) Diagnoses Snoring R06.83 Severe uncontrolled hypertension I10 Fatigue due to sleep pattern disturbance R53.83; G47.9 Time Spent (min) 30 Comment Evaluation of Sleep Apnea Sleep Questionnaire Difficulty falling asleep: Yes Difficulty staying asleep?: Yes Number of arousals: 2-5 Snoring: Yes Witnessed apneas: Yes Gasping arousals: Yes Nocturia: No GERD: No Vivid dreams: Yes Acting out dreams: No Abnormal behavior in sleep: Yes Abnormal movements in sleep: Yes Morning headaches: Yes Excessive daytime sleepiness: Yes Daytime naps: Yes Restless legs: Yes Hallucinations: No Sleep paralysis: No Drop attacks: No Sleep Study: No CPAP: No
== END 2024-07-21 15:50 | disposition home or self-care (01) ==
PROVIDERS: PCP Nurse Practitioner Family; Visit Provider Physician Assistant Medical
DX: R06.83 Snoring (principal); I10 Essential (primary) hypertension; R53.83 Other fatigue; G47.9 Sleep disorder, unspecified
CPT/HCPCS: 99204

== ENCOUNTER → 2024-07-21 14:24 | Outpatient (BNVA) | payer OTHER, SELFPAY | PROVIDERS: PCP Nurse Practitioner Family; Visit Provider Physician Assistant Medical ==

== ENCOUNTER 2024-07-22 07:15 | Outpatient (REF) | payer OTHER, SELFPAY ==
[2024-07-22 11:20] LABS: Appearance Urine Clear; Color Urine Yellow; Glucose Urine UA Negative (Negative); Leukocyte Esterase Urine Negative (Negative); Nitrite Urine Negative (Negative); PH 6.5 (5.0-9.0); Specific Gravity - Urine 1.015 (1.005-1.025); UMIC TRIGGER UACC YES; Urine Blood Small (1+) (Negative); Urine Ketones Negative (Negative); Urine Protein 100 (2+) mg/dL (Neg-Trace)
[2024-07-22 11:28] LABS: Bacteria Urine None Seen (None Seen); Hyaline Casts Urine 0-2 /LPF (0-2); RBC Urine 0-2 /HPF (0-2); Squamous Epithelial Cell Urine 0-2 /HPF (0-2); WBC Urine 0-5 /HPF (0-5)
[2024-07-22 11:30] LABS: Hematocrit 48.1 % (42.0-52.0); Hemoglobin 16.6 g/dl (14.0-18.0); Mean Corpuscular HGB Conc 34.5 g/dl (31.0-36.0); Mean Corpuscular Hemoglobin 32.3 pg (27.0-33.0); Mean Corpuscular Volume 93.6 fL (80.0-98.0); Mean Platelet Volume 11.6 fL (9.4-12.4); Platelet Count 221 X10*3/uL (160-400); Red Blood Count 5.14 X10*6/uL (4.60-5.80); White Blood Count 6.4 X10*3/uL (4.8-10.8)
[2024-07-22 12:12] LABS: Ferritin 150 ng/mL (20-250); Vitamin D 25-OH Total 23.7 ng/mL (>30)
[2024-07-22 12:16] LABS: Alanine Aminotransferase 32 U/L (0-40); Albumin Level 4.2 g/dL (3.5-5.0); Alkaline Phosphatase 50 U/L (39-117); Anion Gap 13 (12-20); Aspartate Amino Transferase 28 U/L (5-37); Bilirubin Direct 0.1 mg/dL (0.0-0.5); Bilirubin Total 0.4 mg/dL (0.0-1.0); Blood Urea Nitrogen 16 mg/dL (9-16); Calcium 8.9 mg/dL (8.4-10.2); Carbon Dioxide 27 mmol/L (22-29); Chloride 102 mmol/L (96-108); Cholesterol 206 mg/dL (<200); Estimated Glomerular Filt Rate > 60; Glucose Fasting 107 mg/dL (60-99); Glucose Random 107 mg/dL (60-115); HDL Cholesterol 40 mg/dL (>40); Iron 73 mcg/dL (45-160); LDL Cholesterol Calculated 137 mg/dL (<100); Percent Iron Saturation 22 % (15-50); Potassium 3.9 mmol/L (3.3-5.1); Sodium 138 mmol/L (135-145); Total Iron Binding Capacity 331 mcg/dL (228-428); Total Protein 8.2 g/dL (6.5-8.0); Triglycerides 148 mg/dL (<150); Unsaturated Iron Binding 258 ug/dL
[2024-07-22 12:17] LABS: Creatinine Urine 102.76 mg/dL; Microalbum/Creatinine Ratio Ur 290.9 ug/mg cr (<30)
[2024-07-22 12:50] LABS: Vitamin B12 315 pg/mL (200-900)
[2024-07-22 16:08] LABS: Estimated Average Glucose 111 mg/dL; Hemoglobin A1C 151.1834 umol/L; Hemoglobin A1c % 5.5 % (<6.0); Total Hemoglobin (HGBA1C) 4183.6457 umol/L
[2024-07-25 23:34] LABS: Methylmalonic Acid 218 nmol/L (55-335)
== END 2024-07-22 07:16 | disposition home or self-care (01) ==
LOC: HO.WFDLDS 07:15
PROVIDERS: Referring Provider Physician Assistant Medical; Visit Provider Nurse Practitioner Family
DX: Z00.00 Encounter for general adult medical examination without abnormal findings (principal); G47.9 Sleep disorder, unspecified; R06.83 Snoring; I10 Essential (primary) hypertension; R73.01 Impaired fasting glucose; R74.01 Elevation of levels of liver transaminase levels; R80.9 Proteinuria, unspecified; E78.00 Pure hypercholesterolemia, unspecified; R53.83 Other fatigue
CPT/HCPCS: 36415; 80053; 80061; 80076; 81001; 82043; 82306; 82570; 82607; 82728; 82746; 82947; 83036; 83540; 83921; 85027

== ENCOUNTER 2024-07-23 13:39 | Outpatient (AMB) | payer OTHER, SELFPAY ==
--- NOTE | 2024-07-23 13:41 | MHC.PC.OV ---
Vital Signs 07/23/24 13:45 07/23/24 14:10 Height 5 ft 7 in Weight 344 lb BMI 53.9 BP 225/127 H 200/110 H Blood Pressure Location Rt brachial Rt brachial Position Sitting Sitting Respiration 16 Pulse 86 84 Pulse Source Pulse Oximeter Auscultation Temp 98.2 F Temp Source Oral Pulse Oximetry (%) 97 Oxygen Delivery Method Room Air Intake Visit Reasons: 1 wk HTN, elevated glucose Intake Note: patient here for 1 wk follow up on HTN and elevated glucose Teacher Assistant Required: No Allergies No Known Allergies Allergy (Verified 07/23/24 13:52) Medication List - Last Reconciled 07/23/24 by Sharmin Leo CNP metoprolol tartrate 100 mg PO Q12H 30 days naproxen 500 mg PO BID PRN Tobacco use date assessed: 07/23/24 Dental Screening Dental Screen Date: 07/23/24 Did you have a dental visit in the last 12 months?: Yes Did you have a dental problem in the last 6 months where you did not have access to dental care?: No Was dental information given to patient?: Patient has dentist HPI HPI Comments History of Present Illness Details 49-year-old male presents for hypertension follow-up. He admits to taking metoprolol as prescribed without adverse reactions. He notes that he has been making healthy dietary choices, including low-sodium diet. He has not drank alcohol for the past 4 days. No acute symptoms at this time. He recently had blood work done for neurology. He is deficient in vitamin-D and folate. 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 Current occupational exposures/hazards: No Cognitive needs: No Hearing needs: No Vision needs: No Questionnaire Thrive Questionnaire Date Thrive assessed: 07/08/24 I am a: Patient What is your living situation today?: I have a steady place to live Within the past 12 months, did the food you bought not last and you didn't have the money to get more?: Never true Within the past 12 months, did you worry whether your food would run out before you got money to buy more?: Never true Do you have trouble paying for medicines?: No Do you have trouble getting transportation to medical appointments?: No Do you have trouble paying your heating and electricity bill?: No Do you have trouble taking care of your child, family member or friend?: No Do you have trouble with day-to-day activities such as bathing, preparing meals, shopping, managing finances, etc.?: No Are you currently unemployed and looking for a job?: No Are you interested in more education?: No Please select the resources that you would like help with: None Currently or been in a relationship where the following occur: I choose not to answer THRIVE Score: 0 COREEN-7 AMB Questionnaire COREEN-7 Date COREEN - 7 assessed: 07/08/24 Source: Developed by Drs. Mahamed Rodriguez, Elyse Donaldson, Micheal Grullon and colleagues, with an educational amirah from [employer]. Review of Systems Const Details: Const Denies chills, Denies fatigue, Denies fever(s), Denies headache(s) and Denies weakness ENT Denies dizziness and Denies headache(s) Card Denies chest pain, Denies lightheadedness, Denies dyspnea and Denies other (Palpitations) Resp Denies cough, Denies dyspnea, Denies wheezing and Denies other ( shortness of breath) GI Denies abdominal pain, Denies melena, Denies hematochezia, Denies change in bowel habits, Denies dyspepsia and Denies nausea Denies hematuria and Denies dysuria Musc Denies abnormal gait, Denies myalgias, Denies arthralgias, Denies numbness and Denies tingling Skin/Breast Denies rash, Denies unusual bruising and Denies wounds Neuro Denies abnormal gait, Denies dizziness, Denies headache(s), Denies memory loss, Denies numbness, Denies Sensory deficit (Neuro), Denies tingling and Denies weakness Psych Denies anxiety, Denies depression, Denies memory loss Endo Denies cold intolerance, Denies fatigue, Denies heat intolerance, Denies polydipsia and Denies polyuria Aller/Immun Denies wheezing Physical exam (Primary Care) Vital Signs: Last Vital Signs Temp 98.2 F 07/23/24 13:45 Pulse 86 07/23/24 13:45 Resp 16 07/23/24 13:45 BP 225/127 H 07/23/24 13:45 Pulse Ox 97 07/23/24 13:45 Oxygen Delivery Method Room Air 07/23/24 13:45 BMI result Body Mass Index 53.9 Tobacco/Smoking Status: Tobacco use Status Tobacco use date assessed 07/23/24 07/23/24 13:48 Patient Tobacco Use Status Former Tobacco user 07/23/24 13:48 e-Cigarette/Vaping Use Never Used 07/23/24 13:48 Thrive Assessment: Date of Thrive Assessment Date Thrive assessed 07/08/24 07/23/24 13:48 Currently or been in a relationship where the following occur: I choose not to answer Const Other: General: no acute distress and well developed Nutritional Appearance: well nourished Orientation/consciousness: patient oriented x3 HENMT Head: Yes normocephalic and Yes atraumatic Eyes General: appearance normal, both eyes and all related structures Pupils: Equal, round and reactive pupils present EOM: EOMs intact bilaterally Resp Effort & Inspection: normal respiratory effort Auscultation: clear to auscultation bilaterally Cardio Rate: regular rate Rhythm: regular rhythm Heart sounds: S1 normal heart sound present, S2 normal heart sound present, no gallops, no murmurs and no rubs GI Palpation (GI): No Abdominal aortic bruit present, Soft to palpation, nontender, No hepatosplenomegaly present and No Rebound tenderness present Auscultation: normal bowel sounds General: Yes no CVA tenderness Back/Spine/Pelvis Back: no CVA tenderness Cervical Spine: cervical ROM normal and No Cervical spine tenderness Thoracic/Lumbar Spine: thoraco-lumbar ROM normal, No pain with thoraco-lumbar ROM, No thoracic spinal tenderness and No lumbar spinal tenderness Extrem General: Yes normal to inspection, No edema and No calf tenderness Skin General: warm and dry. Normal skin color. Normal skin turgor Neuro General: patient oriented x3, gait normal and no focal neuro deficit Cranial nerves: Yes Equal, round and reactive pupils present Cognition (Neuro): normal cognition Gait exam (Neuro): Normal gait present Sensory Exam: No Sensory deficit (Neuro) Psych Appearance: grossly normal Affect: normal affect Attitude: cooperative Thought process: Normal thought process present Coding Level of Care Code Est Pt Level 4 (59535) Diagnoses High blood pressure I10 Vitamin D deficiency E55.9 Folate deficiency E53.8 Elevated fasting glucose R73.01 Assessment & Plan Assessment & Plan (1) High blood pressure: Code(s): I10 - Essential (primary) hypertension Category: Medical Plan: Resting blood pressure is 200/110, above goal of less than 140/90. Heart rate is 84. Patient continues to refuse to go to the ED as best practice for management of his hypertension. Will start lisinopril-hydrochlorothiazide 20-12.5 mg daily; advised to take as prescribed. Instructed on the risks, benefits, and potential adverse reactions of the medication. Continue to take metoprolol 100 mg twice daily. Low-sodium diet encouraged. Will check aldosterone/renin ratio. Renal ultrasound ordered to monitor renal function. Will recheck kidney function in 3 days. Start referral made to Cardiology. He has an echocardiogram scheduled later this week. He will check his blood pressure daily, record readings, and bring to his next appointment. Follow-up in 4 days or sooner with symptoms or concerns. Verbalized understanding and agreed with treatment plan. (2) Vitamin D deficiency: Code(s): E55.9 - Vitamin D deficiency, unspecified Category: Medical Plan: Recent vitamin-D level was low, 23.7. Vitamin D3 25 mcg ordered; advised to take as prescribed. Will recheck vitamin-D level in 6-8 weeks. Verbalized understanding and agreed with treatment plan. (3) Folate deficiency: Code(s): E53.8 - Deficiency of other specified B group vitamins Category: Medical Plan: Recent folate level is low, 3.0. Folic acid 400 mcg daily ordered; advised to take as prescribed. Will recheck folate levels in 6-8 weeks and make changes as needed. Verbalized understanding and agreed with treatment plan. (4) Elevated fasting glucose: Code(s): R73.01 - Impaired fasting glucose Category: Medical Plan: Recent A1c is normal, 5.5%. Healthy diet and routine exercise encouraged. Verbalized understanding and agreed with the treatment plan. Orders: Orders Aldost/Renin Today I10 - Essential (primary) hypertension Folate 2 Months E53.8 - Deficiency of other specified B group vitamins Vitamin D 25-OH Total 2 Months E55.9 - Vitamin D deficiency, unspecified US renal BI Today I10 - Essential (primary) hypertension Basic Metabolic Panel 3 Days I10 - Essential (primary) hypertension Referrals Cardiology Referral I10 - Essential (primary) hypertension Medications: New folic acid 400 mcg PO DAILY 30 days 30 tabs 2RF cholecalciferol (vitamin D3) 25 mcg PO DAILY 90 days 90 tabs 1RF lisinopril-hydrochlorothiazide 20-12.5 mg 1 tab PO DAILY 30 days 30 tabs 3RF
[2024-07-23 13:45] VITALS: BP 225/127; PULSE 86; RESP 16; TEMP 36.8; O2SAT 97; BMI 53.9
[2024-07-23 14:10] VITALS: BP 200/110; PULSE 84
== END 2024-07-23 14:25 | disposition home or self-care (01) ==
PROVIDERS: PCP Nurse Practitioner Family; Visit Provider Nurse Practitioner Family
DX: I10 Essential (primary) hypertension (principal); E55.9 Vitamin D deficiency, unspecified; E53.8 Deficiency of other specified B group vitamins; R73.01 Impaired fasting glucose

== ENCOUNTER → 2024-07-23 13:39 | Outpatient (BNVA) | payer OTHER, SELFPAY | PROVIDERS: PCP Nurse Practitioner Family; Visit Provider Nurse Practitioner Family ==

== ENCOUNTER 2024-07-23 14:30 | Outpatient (REF) | payer OTHER, SELFPAY ==
[2024-08-02 13:23] LABS: Aldosterone/Renin Ratio 4.7 Ratio (0.9-28.9)
== END 2024-07-23 14:31 | disposition home or self-care (01) ==
LOC: HO.WFDLDS 14:30
PROVIDERS: Visit Provider Nurse Practitioner Family
DX: I10 Essential (primary) hypertension (principal)
CPT/HCPCS: 36415; 82088

== ENCOUNTER → 2024-07-25 14:38 | Outpatient (REF) | payer OTHER, SELFPAY ==
--- NOTE | 2024-07-25 14:43 | CA_ITS ---
Transthoracic Echocardiogram Patient (Last, First, Middle): Petar Keen, Gender: Male Date of : 1975 Age: 49 Procedure Date: 07/25/2024 Procedure Type: Transthoracic Echocardiogram Location: OP Height: 170.18 cm Weight: 110.68 kg BSA: 2.20 m2 Heart Rate: bpm BP: 200 / 130 mmHg Medical Records Coder: TO Referring MD: Sharmin Leo CNP Symptoms: I51.7 - Cardiomegaly Study Quality: Adequate Conclusions: - 1. Normal LV ejection fraction 55-60% with mild LVH with grade 1 diastolic dysfunction 2. Mildly dilated left atrium 3. Normal cardiac valvular Dopplers 4. Mildly dilated ascending aorta at 3.9 cm 5. No gross pericardial effusion Findings Left Ventricle Normal left ventricular size and systolic function. There is mildly increased left ventricular wall thickness. The visually estimated ejection fraction is between 55-60%. Spectral Doppler is indicative of an impaired relaxation filling pattern. E/E prime ratio is <8, consistent with normal filling pressures. Evidence suggests grade I (mild) diastolic dysfunction. Right Ventricle Normal right ventricular cavity size and systolic function. Atria The left atrium is mildly dilated. There is lipomatous hypertrophy of the interatrial septum. There is no evidence of interatrial shunt. The right atrium is normal in size. Aortic Valve Normal aortic valve structure and function. There is no aortic valve stenosis. There is no aortic valve regurgitation. Mitral Valve Normal mitral valve structure and function. There is trace mitral valve regurgitation. There is no mitral valve stenosis. Pulmonic Valve The pulmonic valve is likely normal. Tricuspid Valve Likely normal tricuspid valve structure and function. Tricuspid regurgitation envelope is inadequate for calculation of right ventricular systolic pressure. Normal right atrial pressure. Great Vessels The pulmonary artery was not well visualized. There is mild dilatation of the ascending aorta measuring 3.90 cm. Small plaque is seen in the sino tubular ridge. Venous The inferior vena cava is normal in size and collapses greater than 50% with inspiration. Pericardium/Pleural There is no evidence of pericardial effusion. Prior Study Comparison No prior study available for comparison. Measurements 2D Linear Measurements IVSd: 1.36 0.6-0.9/0.6-1.0 cm LVIDd: 4.71 3.9-5.3/4.2-5.9 cm LVIDd Index: 2.14 2.4-3.2/2.2-3.1 cm/m2 LVIDs: 3.50 2.0-3.6 cm LVPWd: 1.38 0.7-1.1 cm LA Diam: 4.60 2.7-3.8/3.0-4.0 cm LAIDs Index: 2.09 1.5-2.3 cm/m2 LV Mass: 321.37 67-162/88-224 g LV Mass Index: 146.08 43-95/49-115 g/m2 LVOT Diam: 2.20 3.0+(-)1.3 cm Aortic Valve AoV Pk Morgan: 1.36 AoV Mn Morgan: 0.93 AoV VTI: 0.25 AoV Pk Grad: 7.00 Aov Mn Grad: 4.00 JAYASHREE Cont.VTI: 2.99 LVOT LVOT Pk Morgan: 1.03 LVOT Mn Morgan: 0.69 LVOT VTI: 0.20 LVOT Pk Grad: 4.00 LVOT Mn Grad: 2.00 LVOT Diam: 2.20 LVOT Area: 3.80 Right Ventricle TAPSE (mm): 20.30 TVS' Morgan: 12.90 Tricuspid Valve RA Press: 3.00 Great Vessels Aorta Sinus of Valsalva: 3.42 2.0-3.[address] Ridge: 2.65 1.7-3.4 cm Ao Asc: 3.90 2.1-3.4 cm Updated in Other Vendor System with Status of Final Ke Tapia MD electronically signed on 07/26/2024 1:11:15 PM with status of Final
== END ==
LOC: HO.CARD 14:38
PROVIDERS: PCP Nurse Practitioner Family; Visit Provider Nurse Practitioner Family
DX: I51.7 Cardiomegaly (principal)
CPT/HCPCS: 93306

== ENCOUNTER → 2024-07-25 14:43 | Outpatient (BNV) | payer OTHER, SELFPAY | PROVIDERS: PCP Nurse Practitioner Family; Visit Provider Internal Medicine Cardiovascular Disease | DX: I51.7 Cardiomegaly (principal); I42.8 Other cardiomyopathies | CPT/HCPCS: 93306 ==

== ENCOUNTER 2024-07-28 07:33 | Outpatient (REF) | payer OTHER, SELFPAY ==
[2024-07-28 11:58] LABS: Appearance Urine Clear; Color Urine Yellow; Glucose Urine UA Negative (Negative); Leukocyte Esterase Urine Negative (Negative); Nitrite Urine Negative (Negative); UMIC TRIGGER UACC YES; Urine Blood Small (1+) (Negative); Urine Ketones Negative (Negative); Urine Protein 30 (1+) mg/dL (Neg-Trace)
[2024-07-28 12:17] LABS: Bacteria Urine None Seen (None Seen); RBC Urine 0-2 /HPF (0-2); Squamous Epithelial Cell Urine 0-2 /HPF (0-2); WBC Urine 0-5 /HPF (0-5)
[2024-07-28 12:40] LABS: Anion Gap 13 (12-20); Blood Urea Nitrogen 22 mg/dL (9-16); Calcium 9.9 mg/dL (8.4-10.2); Carbon Dioxide 28 mmol/L (22-29); Chloride 101 mmol/L (96-108); Estimated Glomerular Filt Rate 52; Glucose Random 103 mg/dL (60-115); Potassium 4.4 mmol/L (3.3-5.1); Sodium 138 mmol/L (135-145)
== END 2024-07-28 07:34 | disposition home or self-care (01) ==
LOC: HO.WFDLDS 07:33
PROVIDERS: Visit Provider Nurse Practitioner Family
DX: I10 Essential (primary) hypertension (principal)
CPT/HCPCS: 36415; 80048; 81001

== ENCOUNTER 2024-07-29 15:40 | Outpatient (AMB) | payer OTHER, SELFPAY ==
--- NOTE | 2024-07-29 15:50 | MHC.PC.OV ---
Vital Signs 07/29/24 15:52 07/29/24 16:04 Height 5 ft 7 in Weight 243 lb BMI 38.1 BP 184/109 H 180/100 H Blood Pressure Location Rt brachial Lt brachial Position Sitting Sitting Respiration 16 Pulse 114 H 108 H Pulse Source Pulse Oximeter Auscultation Temp 98.2 F Temp Source Oral Pulse Oximetry (%) 97 Oxygen Delivery Method Room Air Intake Visit Reasons: 4 days HTN Intake Note: patient here for 4 days follow up on HTN Distribution Coordinator Required: No Allergies No Known Allergies Allergy (Verified 07/29/24 15:52) Tobacco use date assessed: 07/29/24 Dental Screening Dental Screen Date: 07/29/24 Did you have a dental visit in the last 12 months?: Yes Did you have a dental problem in the last 6 months where you did not have access to dental care?: No Was dental information given to patient?: Patient has dentist HPI HPI Comments History of Present Illness Details 49-year-old male presents for hypertension follow-up. He admits to taking his medications as prescribed without adverse reactions. He has been making healthy dietary choices. He offers no complaints and denies acute symptoms at this time. 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 Current occupational exposures/hazards: No Cognitive needs: No Hearing needs: No Vision needs: No Questionnaire Thrive Questionnaire Date Thrive assessed: 07/08/24 I am a: Patient What is your living situation today?: I have a steady place to live Within the past 12 months, did the food you bought not last and you didn't have the money to get more?: Never true Within the past 12 months, did you worry whether your food would run out before you got money to buy more?: Never true Do you have trouble paying for medicines?: No Do you have trouble getting transportation to medical appointments?: No Do you have trouble paying your heating and electricity bill?: No Do you have trouble taking care of your child, family member or friend?: No Do you have trouble with day-to-day activities such as bathing, preparing meals, shopping, managing finances, etc.?: No Are you currently unemployed and looking for a job?: No Are you interested in more education?: No Please select the resources that you would like help with: None Currently or been in a relationship where the following occur: I choose not to answer THRIVE Score: 0 COREEN-7 AMB Questionnaire COREEN-7 Date COREEN - 7 assessed: 07/08/24 Source: Developed by Drs. Mahamed Rodriguez, Elyse Donaldson, Micheal Grullon and colleagues, with an educational amirah from [employer]. Review of Systems Const Details: Const Denies chills, Denies fatigue, Denies fever(s), Denies headache(s) and Denies weakness ENT Denies dizziness and Denies headache(s) Card Denies chest pain, Denies lightheadedness, Denies dyspnea and Denies other (Palpitations) Resp Denies cough, Denies dyspnea, Denies wheezing and Denies other ( shortness of breath) GI Denies abdominal pain, Denies melena, Denies hematochezia, Denies change in bowel habits, Denies dyspepsia and Denies nausea Denies hematuria and Denies dysuria Musc Denies abnormal gait, Denies myalgias, Denies arthralgias, Denies numbness and Denies tingling Skin/Breast Denies rash, Denies unusual bruising and Denies wounds Neuro Denies abnormal gait, Denies dizziness, Denies headache(s), Denies memory loss, Denies numbness, Denies Sensory deficit (Neuro), Denies tingling and Denies weakness Psych Denies anxiety, Denies depression, Denies memory loss Endo Denies cold intolerance, Denies fatigue, Denies heat intolerance, Denies polydipsia and Denies polyuria Aller/Immun Denies wheezing Physical exam (Primary Care) Tobacco/Smoking Status: Tobacco use Status Tobacco use date assessed 07/23/24 07/23/24 13:48 Patient Tobacco Use Status Former Tobacco user 07/23/24 13:48 e-Cigarette/Vaping Use Never Used 07/23/24 13:48 Thrive Assessment: Date of Thrive Assessment Date Thrive assessed 07/08/24 07/23/24 13:48 Currently or been in a relationship where the following occur: I choose not to answer Const Other: General: no acute distress and well developed Nutritional Appearance: well nourished Orientation/consciousness: patient oriented x3 HENMT Head: Yes normocephalic and Yes atraumatic Eyes General: appearance normal, both eyes and all related structures Pupils: Equal, round and reactive pupils present EOM: EOMs intact bilaterally Resp Effort & Inspection: normal respiratory effort Auscultation: clear to auscultation bilaterally Cardio Rate: regular rate Rhythm: regular rhythm Heart sounds: S1 normal heart sound present, S2 normal heart sound present, no gallops, no murmurs and no rubs GI Palpation (GI): No Abdominal aortic bruit present, Soft to palpation, nontender, No hepatosplenomegaly present and No Rebound tenderness present Auscultation: normal bowel sounds General: Yes no CVA tenderness Back/Spine/Pelvis Back: no CVA tenderness Cervical Spine: cervical ROM normal and No Cervical spine tenderness Thoracic/Lumbar Spine: thoraco-lumbar ROM normal, No pain with thoraco-lumbar ROM, No thoracic spinal tenderness and No lumbar spinal tenderness Extrem General: Yes normal to inspection, No edema and No calf tenderness Skin General: warm and dry. Normal skin color. Normal skin turgor Neuro General: patient oriented x3, gait normal and no focal neuro deficit Cranial nerves: Yes Equal, round and reactive pupils present Cognition (Neuro): normal cognition Gait exam (Neuro): Normal gait present Sensory Exam: No Sensory deficit (Neuro) Psych Appearance: grossly normal Affect: normal affect Attitude: cooperative Thought process: Normal thought process present Coding Level of Care Code Est Pt Level 3 (29821) Diagnoses High blood pressure I10 Assessment & Plan Assessment & Plan (1) High blood pressure: Code(s): I10 - Essential (primary) hypertension Category: Medical Plan: Resting blood pressure is 180/100, above goal of less than 140/90. Heart rate is 108. Will discontinue metoprolol and start labetalol 100 mg twice daily to further lower his blood pressure and heart rate. Advised to start taking labetalol as prescribed. Continue to take lisinopril-hydrochlorothiazide as prescribed. Low-sodium diet and routine exercise encouraged. Aldosterone/renin results are pending. He has an appointment for renal ultrasound in 2 days. Follow-up in 3 days or sooner with symptoms or concerns. Verbalized understanding and agreed with treatment plan. Medications: New labetalol 100 mg PO BID 30 days 60 tabs 3RF Discontinued metoprolol tartrate Discontinued Reason: Change Referral Type 100 mg PO Q12H 30 days 60 tabs 1RF
[2024-07-29 15:52] VITALS: BP 184/109; PULSE 114; RESP 16; TEMP 36.8; O2SAT 97; BMI 38.1
[2024-07-29 16:04] VITALS: BP 180/100; PULSE 108
== END 2024-07-29 16:10 | disposition home or self-care (01) ==
LOC: HO.HMCFM 15:45
PROVIDERS: PCP Nurse Practitioner Family; Visit Provider Nurse Practitioner Family
DX: I10 Essential (primary) hypertension (principal)

== ENCOUNTER → 2024-07-29 15:40 | Outpatient (BNVA) | payer OTHER, SELFPAY | PROVIDERS: PCP Nurse Practitioner Family; Visit Provider Nurse Practitioner Family ==

== ENCOUNTER 2024-07-31 14:31 | Outpatient (REF) | payer OTHER, SELFPAY ==
--- NOTE | ~2024-07-31 | US_ITS ---
EXAMINATION: US KIDNEY BILATERAL HISTORY: I10 - Essential (primary) hypertension TECHNIQUE: Real-time grayscale ultrasound imaging of the kidneys was performed and images were reviewed. COMPARISON: There are no prior studies for comparison. FINDINGS: Right kidney: The right kidney measures 11.0 x 6.2 x 6.9 cm. Renal parenchymal echotexture and thickness are normal. There are no masses. There is no hydronephrosis or renal calculi. Left Kidney: The left kidney measures 11.2 x 5.8 x 6.0 cm. Renal parenchymal echotexture and thickness are normal. There are no masses. There is no hydronephrosis or renal calculi. US/US renal BI IMPRESSION: Unremarkable renal ultrasound. Electronically signed by: Mahamed Sawyer MD 07/31/2024 02:59 PM EDT
== END 2024-07-31 14:32 | disposition home or self-care (01) ==
LOC: HO.HMGCX 14:31
PROVIDERS: PCP Nurse Practitioner Family; Visit Provider Nurse Practitioner Family
DX: I10 Essential (primary) hypertension (principal)
CPT/HCPCS: 76775

== ENCOUNTER → 2024-07-31 14:39 | Outpatient (BNV) | payer OTHER, SELFPAY | PROVIDERS: PCP Nurse Practitioner Family; Visit Provider Radiology Diagnostic Radiology | DX: I10 Essential (primary) hypertension (principal) | CPT/HCPCS: 76775 ==

== ENCOUNTER 2024-08-01 15:08 | Outpatient (AMB) | payer OTHER, SELFPAY ==
--- NOTE | 2024-08-01 15:20 | MHC.PC.OV ---
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: No Allergies No Known Allergies Allergy (Verified 08/01/24 16:03) Medication List - Last Reconciled 08/01/24 by Sharmin Leo CNP cholecalciferol (vitamin D3) 25 mcg PO DAILY 90 days folic acid 400 mcg PO DAILY 30 days labetalol 100 mg PO BID 30 days lisinopril-hydrochlorothiazide 20-12.5 mg 1 tab PO DAILY 30 days naproxen 500 mg PO BID PRN Tobacco use date assessed: 08/01/24 Dental Screening Dental Screen Date: 08/01/24 Did you have a dental visit in the last 12 months?: Yes Did you have a dental problem in the last 6 months where you did not have access to dental care?: No Was dental information given to patient?: Patient has dentist HPI HPI Comments History of Present Illness Details 49-year-old male presents for hypertension follow-up. He admits to taking his medications as prescribed without adverse reactions. He has been making healthy dietary choices, including low-sodium diet. He offers no complaints and denies acute symptoms at this time. Bilateral renal ultrasound on 07/31/2024 was unremarkable. Aldosterone/renin lab results still pending. 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 Current occupational exposures/hazards: No Cognitive needs: No Hearing needs: No Vision needs: No Questionnaire Thrive Questionnaire Date Thrive assessed: 07/08/24 I am a: Patient What is your living situation today?: I have a steady place to live Within the past 12 months, did the food you bought not last and you didn't have the money to get more?: Never true Within the past 12 months, did you worry whether your food would run out before you got money to buy more?: Never true Do you have trouble paying for medicines?: No Do you have trouble getting transportation to medical appointments?: No Do you have trouble paying your heating and electricity bill?: No Do you have trouble taking care of your child, family member or friend?: No Do you have trouble with day-to-day activities such as bathing, preparing meals, shopping, managing finances, etc.?: No Are you currently unemployed and looking for a job?: No Are you interested in more education?: No Please select the resources that you would like help with: None Currently or been in a relationship where the following occur: I choose not to answer THRIVE Score: 0 COREEN-7 AMB Questionnaire COREEN-7 Date COREEN - 7 assessed: 07/08/24 Source: Developed by Drs. Mahamed Rodriguez, Elyse Donaldson, Micheal Grullon and colleagues, with an educational amirah from [employer]. Review of Systems Const Details: Const Denies chills, Denies fatigue, Denies fever(s), Denies headache(s) and Denies weakness ENT Denies dizziness and Denies headache(s) Card Denies chest pain, Denies lightheadedness, Denies dyspnea and Denies other (Palpitations) Resp Denies cough, Denies dyspnea, Denies wheezing and Denies other ( shortness of breath) GI Denies abdominal pain, Denies melena, Denies hematochezia, Denies change in bowel habits, Denies dyspepsia and Denies nausea Denies hematuria and Denies dysuria Musc Denies abnormal gait, Denies myalgias, Denies arthralgias, Denies numbness and Denies tingling Skin/Breast Denies rash, Denies unusual bruising and Denies wounds Neuro Denies abnormal gait, Denies dizziness, Denies headache(s), Denies memory loss, Denies numbness, Denies Sensory deficit (Neuro), Denies tingling and Denies weakness Psych Denies anxiety, Denies depression, Denies memory loss Endo Denies cold intolerance, Denies fatigue, Denies heat intolerance, Denies polydipsia and Denies polyuria Aller/Immun Denies wheezing Physical exam (Primary Care) Vital Signs: Last Vital Signs Temp 97.6 F 08/01/24 15:23 Pulse 86 08/01/24 15:23 Resp 16 08/01/24 15:23 BP 141/95 H 08/01/24 15:23 Pulse Ox 97 08/01/24 15:23 Oxygen Delivery Method Room Air 08/01/24 15:23 BMI result Body Mass Index 37.6 Tobacco/Smoking Status: Tobacco use Status Tobacco use date assessed 08/01/24 08/01/24 15:26 Patient Tobacco Use Status Former Tobacco user 08/01/24 15:20 e-Cigarette/Vaping Use Never Used 08/01/24 15:20 Thrive Assessment: Date of Thrive Assessment Date Thrive assessed 07/08/24 08/01/24 15:20 Currently or been in a relationship where the following occur: I choose not to answer Const Other: General: no acute distress and well developed Nutritional Appearance: well nourished Orientation/consciousness: patient oriented x3 HENMT Head: Yes normocephalic and Yes atraumatic Eyes General: appearance normal, both eyes and all related structures Pupils: Equal, round and reactive pupils present EOM: EOMs intact bilaterally Resp Effort & Inspection: normal respiratory effort Auscultation: clear to auscultation bilaterally Cardio Rate: regular rate Rhythm: regular rhythm Heart sounds: S1 normal heart sound present, S2 normal heart sound present, no gallops, no murmurs and no rubs GI Palpation (GI): No Abdominal aortic bruit present, Soft to palpation, nontender, No hepatosplenomegaly present and No Rebound tenderness present Auscultation: normal bowel sounds General: Yes no CVA tenderness Back/Spine/Pelvis Back: no CVA tenderness Cervical Spine: cervical ROM normal and No Cervical spine tenderness Thoracic/Lumbar Spine: thoraco-lumbar ROM normal, No pain with thoraco-lumbar ROM, No thoracic spinal tenderness and No lumbar spinal tenderness Extrem General: Yes normal to inspection, No edema and No calf tenderness Skin General: warm and dry. Normal skin color. Normal skin turgor Neuro General: patient oriented x3, gait normal and no focal neuro deficit Cranial nerves: Yes Equal, round and reactive pupils present Cognition (Neuro): normal cognition Gait exam (Neuro): Normal gait present Sensory Exam: No Sensory deficit (Neuro) Psych Appearance: grossly normal Affect: normal affect Attitude: cooperative Thought process: Normal thought process present Coding Level of Care Code Est Pt Level 3 (61968) Diagnoses High blood pressure I10 Assessment & Plan Assessment & Plan (1) High blood pressure: Code(s): I10 - Essential (primary) hypertension Category: Medical Plan: Resting blood pressure is 140/98, slightly above goal of less than 140/90. Heart rate is 84. Continue current treatment regimen. Follow-up in 2 weeks or sooner with symptoms or concerns. Recent normal bilateral renal ultrasound reviewed with the patient. Aldosterone/renin lab results still pending. Verbalized understanding and agreed with treatment plan.
[2024-08-01 15:23] VITALS: BP 141/95; PULSE 86; RESP 16; TEMP 36.4; O2SAT 97; BMI 37.6
[2024-08-01 16:08] VITALS: BP 140/98; PULSE 84
== END 2024-08-01 16:10 | disposition home or self-care (01) ==
LOC: HO.HMCFM 15:08
PROVIDERS: PCP Nurse Practitioner Family; Visit Provider Nurse Practitioner Family
DX: I10 Essential (primary) hypertension (principal)

== ENCOUNTER → 2024-08-01 15:08 | Outpatient (BNVA) | payer OTHER, SELFPAY | PROVIDERS: PCP Nurse Practitioner Family; Visit Provider Nurse Practitioner Family ==

== ENCOUNTER 2024-08-15 15:09 | Outpatient (AMB) | payer OTHER, SELFPAY ==
--- NOTE | 2024-08-15 15:22 | A.OFFPC_ITS ---
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 Allergies No Known Allergies Allergy (Verified 08/15/24 15:45) Medication List - Last Reconciled 08/15/24 by Sharmin Leo CNP cholecalciferol (vitamin D3) 25 mcg PO DAILY 90 days folic acid 400 mcg PO DAILY 30 days labetalol 100 mg PO BID 30 days lisinopril-hydrochlorothiazide 20-12.5 mg 1 tab PO DAILY 30 days Tobacco use date assessed: 08/15/24 Dental Screening Dental Screen Date: 08/15/24 Did you have a dental visit in the last 12 months?: Yes Did you have a dental problem in the last 6 months where you did not have access to dental care?: No Was dental information given to patient?: Patient has dentist HPI HPI Comments History of Present Illness Details 49-year-old male presents for hypertensi on follow-up. He admits to taking his medications as prescribed without adverse reactions. He has been making healthy dietary choices, including low-sodium diet. His home blood pressure average in the 130-140s/85-95. He offers no complaints and denies acute symptoms at this time. [facility] Medical History High blood pressure Surgical History History of knee surgery Family History Mother Alcohol abuse High blood pressure Cervical cancer Father Substance abuse Paternal Grandmother FH: mental illness Sister Asthma Social History Housing: House Patient Tobacco Use Status: Former Tobacco user Cigarette Packs Per Day: 0.5 Cigarettes Per Day: 10 e-Cigarette/Vaping Use: Never Used Second Hand Smoke Exposure: Yes service: No Current occupational status: employed Current occupation: [employer] Current occupational exposures/hazards: No Cognitive needs: No Hearing needs: No Vision needs: No Questionnaire PHQ-9 Over the last 2 weeks, how often have you been bothered by any of the following problems? 1. Little interest or pleasure in doing things: nearly every day 2. Feeling down, depressed, or hopeless: nearly every day 4. Feeling tired or having little energy: not at all 6. Feeling bad about yourself - or that you are a failure or have let yourself or your family down: not at all 8. Moving or speaking so slowly that other people could have noticed. Or the opposite - being so fidgety or restless that you have been moving around a lot more than usual: not at all Source: Developed by Drs. Mahamed Rodriguez, Elyse Donaldson, Micheal Grullon and colleagues, with an educational amirah from [employer]. Thrive Questionnaire Date Thrive assessed: 07/08/24 I am a: Patient What is your living situation today?: I have a steady place to live Within the past 12 months, did the food you bought not last and you didn't have the money to get more?: Never true Within the past 12 months, did you worry whether your food would run out before you got money to buy more?: Never true Do you have trouble paying for medicines?: No Do you have trouble getting transportation to medical appointments?: No Do you have trouble paying your heating and electricity bill?: No Do you have trouble taking care of your child, family member or friend?: No Do you have trouble with day-to-day activities such as bathing, preparing meals, shopping, managing finances, etc.?: No Are you currently unemployed and looking for a job?: No Are you interested in more education?: No Please select the resources that you would like help with: None Currently or been in a relationship where the following occur: I choose not to answer THRIVE Score: 0 COREEN-7 AMB Questionnaire COREEN-7 Date COREEN - 7 assessed: 07/08/24 Source: Developed by Drs. Mahamed Rodriguez, Micheal Alcantar and colleagues, with an educational amirah from [employer]. Review of Systems Const Details: Const Denies chills, Denies fatigue, Denies fever(s), Denies headache(s) and Denies weakness ENT Denies dizziness and Denies headache(s) Card Denies chest pain, Denies lightheadedness, Denies dyspnea and Denies other (Palpitations) Resp Denies cough, Denies dyspnea, Denies wheezing and Denies other ( shortness of breath) GI Denies abdominal pain, Denies melena, Denies hematochezia, Denies change in bowel habits, Denies dyspepsia and Denies nausea Denies hematuria and Denies dysuria Musc Denies abnormal gait, Denies myalgias, Denies arthralgias, Denies numbness and Denies tingling Skin/Breast Denies rash, Denies unusual bruising and Denies wounds Neuro Denies abnormal gait, Denies dizziness, Denies headache(s), Denies memory loss, Denies numbness, Denies Sensory deficit (Neuro), Denies tingling and Denies weakness Psych Denies anxiety, Denies depression, Denies memory loss Endo Denies cold intolerance, Denies fatigue, Denies heat intolerance, Denies polydipsia and Denies polyuria Aller/Immun Denies wheezing Physical exam (Primary Care) Vital Signs: Last Vital Signs Temp 98.2 F 08/15/24 15:28 Pulse 77 08/15/24 15:28 Resp 16 08/15/24 15:28 BP 152/98 H 08/15/24 15:28 Pulse Ox 98 08/15/24 15:28 Oxygen Delivery Method Room Air 08/15/24 15:28 BMI result Body Mass Index 36.7 Tobacco/Smoking Status: Tobacco use Status Tobacco use date assessed 08/15/24 08/15/24 15:31 Patient Tobacco Use Status Former Tobacco user 08/15/24 15:25 e-Cigarette/Vaping Use Never Used 08/15/24 15:25 Thrive Assessment: Date of Thrive Assessment Date Thrive assessed 07/08/24 08/15/24 15:25 Currently or been in a relationship where the following occur: I choose not to answer Const Other: General: no acute distress and well developed Nutritional Appearance: well nourished Orientation/consciousness: patient oriented x3 HENMT Head: Yes normocephalic and Yes atraumatic Eyes General: appearance normal, both eyes and all related structures Pupils: Equal, round and reactive pupils present EOM: EOMs intact bilaterally Resp Effort & Inspection: normal respiratory effort Auscultation: clear to auscultation bilaterally Cardio Rate: regular rate Rhythm: regular rhythm Heart sounds: S1 normal heart sound present, S2 normal heart sound present, no gallops, no murmurs and no rubs GI Palpation (GI): No Abdominal aortic bruit present, Soft to palpation, nontender, No hepatosplenomegaly present and No Rebound tenderness present Auscultation: normal bowel sounds General: Yes no CVA tenderness Back/Spine/Pelvis Back: no CVA tenderness Cervical Spine: cervical ROM normal and No Cervical spine tenderness Thoracic/Lumbar Spine: thoraco-lumbar ROM normal, No pain with thoraco-lumbar ROM, No thoracic spinal tenderness and No lumbar spinal tenderness Extrem General: Yes normal to inspection, No edema and No calf tenderness Skin General: warm and dry. Normal skin color. Normal skin turgor Neuro General: patient oriented x3, gait normal and no focal neuro deficit Cranial nerves: Yes Equal, round and reactive pupils present Cognition (Neuro): normal cognition Gait exam (Neuro): Normal gait present Sensory Exam: No Sensory deficit (Neuro) Psych Appearance: grossly normal Affect: normal affect Attitude: cooperative Thought process: Normal thought process present Coding Level of Care Code Est Pt Level 3 (87524) Diagnoses High blood pressure I10 Assessment & Plan Assessment & Plan (1) High blood pressure: Code(s): I10 - Essential (primary) hypertension Category: Medical Plan: Resting blood pressure is 136/90, above goal of less than 140/90. Heart rate is 84. Will increase lisinopril to 30 mg daily; advised to take as prescribed. Hydrochlorothiazide 12.5 mg daily ordered; advised to take as prescribed Continue to take labetalol 100 mg twice daily. Low-sodium diet encouraged. Follow-up in 2 weeks or sooner with symptoms or concerns. Verbalized understanding and agreed with treatment plan. Medications: New hydrochlorothiazide 12.5 mg PO DAILY 30 days 30 tabs 3RF lisinopril 30 mg PO DAILY 30 days 30 tabs 3RF Discontinued lisinopril-hydrochlorothiazide 20-12.5 mg Discontinued Reason: Change Referral Type 1 tab PO DAILY 30 days 30 tabs 3RF
[2024-08-15 15:28] VITALS: BP 152/98; PULSE 77; RESP 16; TEMP 36.8; O2SAT 98; BMI 36.7
[2024-08-15 15:49] VITALS: BP 136/90; PULSE 84
== END 2024-08-15 15:55 | disposition home or self-care (01) ==
LOC: HO.HMCFM 15:10
PROVIDERS: PCP Nurse Practitioner Family; Visit Provider Nurse Practitioner Family
DX: I10 Essential (primary) hypertension (principal)

== ENCOUNTER → 2024-08-15 15:09 | Outpatient (BNVA) | payer OTHER, SELFPAY | PROVIDERS: PCP Nurse Practitioner Family; Visit Provider Nurse Practitioner Family ==

== ENCOUNTER 2024-08-18 13:20 | Outpatient (AMB) | payer OTHER, SELFPAY ==
--- NOTE | 2024-08-18 13:22 | A.OFFVIS_ITS ---
Vital Signs 08/18/24 13:27 Height 5 ft 7 in Weight 234 lb BMI 36.6 Intake Visit Reasons: Left knee pain and giving way Intake Note: Petar is a 49 year old male who presents with complaints of progressively worsening left knee pain and giving way. The patient did undergo right knee arthroscopic surgery approximately 20 years ago after tearing his meniscus. He reports minimal discomfort in his right knee. The patient states that several months ago he injured his left knee when he fell down stairs. He twisted his knee and had acute onset of pain. He has failed the last 6 weeks of conservative treatment which has included a home exercise program, Tylenol and anti-inflammatory medicines. He states that his left knee will give out several times per day. Allergies No Known Allergies Allergy (Verified 08/18/24 13:22) Medication List - Last Reconciled 08/18/24 by Orville Temple MD cholecalciferol (vitamin D3) 25 mcg PO DAILY 90 days folic acid 400 mcg PO DAILY 30 days hydrochlorothiazide 12.5 mg PO DAILY 30 days labetalol 100 mg PO BID 30 days lisinopril 30 mg PO DAILY 30 days [facility] Medical History High blood pressure Surgical History History of knee surgery Family History Mother Alcohol abuse High blood pressure Cervical cancer Father Substance abuse Paternal Grandmother FH: mental illness Sister Asthma Social History Housing: House Patient Tobacco Use Status: Former Tobacco user Cigarette Packs Per Day: 0.5 Cigarettes Per Day: 10 e-Cigarette/Vaping Use: Never Used Second Hand Smoke Exposure: Yes service: No Current occupational status: employed 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 Current occupational exposures/hazards: No Cognitive needs: No Hearing needs: No Vision needs: No Physical Exam Vital Signs: BMI result Body Mass Index 36.6 Const Other: Well-nourished well-developed very friendly male awake alert and oriented x3 in no acute distress Extrem Other: Bilateral lower extremity examination shows good capillary refill, no skin lesions noted, normal sensation light touch Left knee examination shows a minimal effusion, minimal crepitus with range of motion, tenderness along his medial joint line, positive Chaparrita's test, no instability Results Reviewed Results Reviewed: X-rays of the patient's left knee show mild diffuse joint space narrowing, no acute bony abnormalities Assessment & Plan Assessment & Plan (1) Tear of medial meniscus of left knee: Code(s): S83.242A - Other tear of medial meniscus, current injury, left knee, initial encounter Category: Medical Plan Mr. Keen presents with progressively worsening left knee pain and mechanical symptoms most likely due to a medial meniscus tear. Thus, I will send the patient for an MRI of his left knee for further evaluation. I will see him back once the MRI is completed to discuss the findings and treatment options. Feel free to call me at any time should questions regarding his orthopedic management arise. Thank you very much for asking me to see this very friendly gentleman. I spent 22 minutes in reviewing the patient's records and imaging studies, seeing the patient and documenting in the medical record. Orders: Orders MR knee LT wo con 08/18/24 S83.242A - Other tear of medial meniscus, current injury, left knee, initial encounter Coding Level of Care Code New Pt Level 3 (46477) Complex EM visit Add On G2211 Diagnoses Tear of medial meniscus of left knee S83.242A
[2024-08-18 13:27] VITALS: BMI 36.6
== END 2024-08-18 13:36 | disposition home or self-care (01) ==
LOC: HO.HOS 13:20
PROVIDERS: PCP Nurse Practitioner Family; Visit Provider Orthopaedic Surgery
DX: S83.242A Other tear of medial meniscus, current injury, left knee, initial encounter (principal)
CPT/HCPCS: 99203

== ENCOUNTER 2024-08-23 19:47 | Outpatient (REF) | payer OTHER, SELFPAY ==
--- NOTE | ~2024-08-23 | MR_ITS ---
EXAMINATION: MRI LEFT KNEE WITHOUT CONTRAST HISTORY: S83.242A - Other tear of medial meniscus, current injury, left knee COMPARISON: Correlation is made with plain films of the left knee dated 07/12/2024. TECHNIQUE: Coronal T1 and fat-suppressed proton density, sagittal proton density and fat-suppressed proton density, and axial fat suppressed T2 weighted MR images of the left knee were obtained. FINDINGS: Bone marrow: There is cystic change in the distal femur in the region of the intercondylar notch. Bone marrow signal intensity is otherwise normal. Joint effusion: There is a small joint effusion. Heard's cyst: There is a tiny Heard's cyst. Articular cartilage: There is a cartilage fissure involving the lateral patellar facet. Muscles/soft tissues: The visualized muscles demonstrate normal signal intensity. Anterior cruciate ligament: Intact Posterior cruciate ligament: Intact Medial collateral ligament: Intact Lateral collateral ligament: Intact Medial meniscus: There is a complex tear of the medial meniscus with a radial component involving the body and an additional horizontal component involving the posterior horn which contacts the inferior joint surface. Lateral meniscus: Intact Flexor mechanism: The popliteus, gastrocnemius, and hamstring tendons are intact. Quadriceps tendon: Intact Patellar tendon: Intact Patellar retinacula: Intact MR/MR knee LT wo con IMPRESSION: 1. Complex tear of the body and posterior horn of the medial meniscus as described. 2. Small joint effusion. Cartilage fissure involving the lateral patellar facet. Tiny Heard's cyst. Electronically signed by: Mahamed Sawyer MD 08/25/2024 07:38 AM EDT
== END 2024-08-23 19:48 | disposition home or self-care (01) ==
LOC: HO.MRI 19:47
PROVIDERS: Visit Provider Orthopaedic Surgery
DX: S83.242A Other tear of medial meniscus, current injury, left knee, initial encounter (principal)
CPT/HCPCS: 73721

== ENCOUNTER → 2024-08-23 19:47 | Outpatient (BNV) | payer OTHER, SELFPAY | PROVIDERS: Visit Provider Radiology Diagnostic Radiology | DX: S83.242A Other tear of medial meniscus, current injury, left knee, initial encounter (principal); M25.462 Effusion, left knee | CPT/HCPCS: 73721 ==

== ENCOUNTER 2024-08-26 15:10 | Outpatient (AMB) | payer OTHER, SELFPAY ==
--- NOTE | 2024-08-26 15:26 | MHC.PC.OV ---
Vital Signs 08/26/24 15:27 08/26/24 15:33 08/26/24 15:43 Height 5 ft 7 in Weight 234 lb BMI 36.6 BP 132/96 H 124/92 H 126/84 Blood Pressure Location Lt brachial Lt brachial Lt brachial Position Sitting Sitting Sitting Respiration 16 Pulse 91 Pulse Source Pulse Oximeter Temp 97.7 F Temp Source Core Pulse Oximetry (%) 95 Oxygen Delivery Method Room Air Intake Visit Reasons: 2 wks HTN Intake Note: Two week follow up htn. Had MRI Sunday. Handwriting Expert Required: No Allergies No Known Allergies Allergy (Verified 08/26/24 15:35) Medication List - Last Reconciled 08/26/24 by Sharmin Leo CNP cholecalciferol (vitamin D3) 25 mcg PO DAILY 90 days folic acid 400 mcg PO DAILY 30 days hydrochlorothiazide 12.5 mg PO DAILY 30 days labetalol 100 mg PO BID 30 days lisinopril 30 mg PO DAILY 30 days Tobacco use date assessed: 08/26/24 Dental Screening Dental Screen Date: 08/15/24 HPI HPI Comments History of Present Illness Details 49-year-old male presents for hypertension follow-up. He admits to taking his medications as prescribed without adverse reactions. He has been making healthy dietary choices, including low-sodium diet. He offers no complaints and denies acute symptoms at this time. 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 Current occupational exposures/hazards: No Cognitive needs: No Hearing needs: No Vision needs: No Questionnaire Thrive Questionnaire Date Thrive assessed: 07/08/24 I am a: Patient What is your living situation today?: I have a steady place to live Within the past 12 months, did the food you bought not last and you didn't have the money to get more?: Never true Within the past 12 months, did you worry whether your food would run out before you got money to buy more?: Never true Do you have trouble paying for medicines?: No Do you have trouble getting transportation to medical appointments?: No Do you have trouble paying your heating and electricity bill?: No Do you have trouble taking care of your child, family member or friend?: No Do you have trouble with day-to-day activities such as bathing, preparing meals, shopping, managing finances, etc.?: No Are you currently unemployed and looking for a job?: No Are you interested in more education?: No Please select the resources that you would like help with: None Currently or been in a relationship where the following occur: I choose not to answer THRIVE Score: 0 AUDIT C Alcohol Use Questionnaire (AUDIT-C) 1. How often do you have a drink containing alcohol?: 2-3 times a week 2. How many drinks containing alcohol do you have on a typical day when you are drinking?: 1 or 2 3. How often do you have six or more drinks on one occasion?: Never Total Score: 3 COREEN-7 AMB Questionnaire COREEN-7 Date COREEN - 7 assessed: 07/08/24 Source: Developed by Drs. Mahamed Rodriguez, Elyse Donaldson, Micheal Grullon and colleagues, with an educational amirah from [employer] Review of Systems Const Details: Const Denies chills, Denies fatigue, Denies fever(s), Denies headache(s) and Denies weakness ENT Denies dizziness and Denies headache(s) Card Denies chest pain, Denies lightheadedness, Denies dyspnea and Denies other (Palpitations) Resp Denies cough, Denies dyspnea, Denies wheezing and Denies other ( shortness of breath) GI Denies abdominal pain, Denies melena, Denies hematochezia, Denies change in bowel habits, Denies dyspepsia and Denies nausea Denies hematuria and Denies dysuria Musc Denies abnormal gait, Denies myalgias, Denies arthralgias, Denies numbness and Denies tingling Skin/Breast Denies rash, Denies unusual bruising and Denies wounds Neuro Denies abnormal gait, Denies dizziness, Denies headache(s), Denies memory loss, Denies numbness, Denies Sensory deficit (Neuro), Denies tingling and Denies weakness Psych Denies anxiety, Denies depression, Denies memory loss Endo Denies cold intolerance, Denies fatigue, Denies heat intolerance, Denies polydipsia and Denies polyuria Aller/Immun Denies wheezing Physical exam (Primary Care) Vital Signs: Last Vital Signs Pulse 91 08/26/24 15:27 Resp 16 08/26/24 15:27 BP 124/92 H 08/26/24 15:33 Pulse Ox 95 08/26/24 15:27 Oxygen Delivery Method Room Air 08/26/24 15:27 BMI result Body Mass Index 36.6 Tobacco/Smoking Status: Tobacco use Status Tobacco use date assessed 08/26/24 08/26/24 15:29 Patient Tobacco Use Status Former Tobacco user 08/26/24 15:29 e-Cigarette/Vaping Use Never Used 08/26/24 15:29 Thrive Assessment: Date of Thrive Assessment Date Thrive assessed 07/08/24 08/26/24 15:29 Currently or been in a relationship where the following occur: I choose not to answer Const Other: General: no acute distress and well developed Nutritional Appearance: well nourished Orientation/consciousness: patient oriented x3 HENMT Head: Yes normocephalic and Yes atraumatic Eyes General: appearance normal, both eyes and all related structures Pupils: Equal, round and reactive pupils present EOM: EOMs intact bilaterally Resp Effort & Inspection: normal respiratory effort Auscultation: clear to auscultation bilaterally Cardio Rate: regular rate Rhythm: regular rhythm Heart sounds: S1 normal heart sound present, S2 normal heart sound present, no gallops, no murmurs and no rubs GI Palpation (GI): No Abdominal aortic bruit present, Soft to palpation, nontender, No hepatosplenomegaly present and No Rebound tenderness present Auscultation: normal bowel sounds General: Yes no CVA tenderness Back/Spine/Pelvis Back: no CVA tenderness Cervical Spine: cervical ROM normal and No Cervical spine tenderness Thoracic/Lumbar Spine: thoraco-lumbar ROM normal, No pain with thoraco-lumbar ROM, No thoracic spinal tenderness and No lumbar spinal tenderness Extrem General: Yes normal to inspection, No edema and No calf tenderness Skin General: warm and dry. Normal skin color. Normal skin turgor Neuro General: patient oriented x3, gait normal and no focal neuro deficit Cranial nerves: Yes Equal, round and reactive pupils present Cognition (Neuro): normal cognition Gait exam (Neuro): Normal gait present Sensory Exam: No Sensory deficit (Neuro) Psych Appearance: grossly normal Affect: normal affect Attitude: cooperative Thought process: Normal thought process present Coding Level of Care Code Est Pt Level 3 (28031) Diagnoses High blood pressure I10 Assessment & Plan Assessment & Plan (1) High blood pressure: Code(s): I10 - Essential (primary) hypertension Category: Medical Plan: Resting blood pressure is 126/84, within goal of less than 140/90. Continue current treatment regimen. Advised to get fasting blood work done a few days before his next visit. Recent creatinine level slightly elevated; will recheck that. Follow-up in 1 month for hypertension, extended physical exam, and labs review. Return sooner with symptoms or concerns. Verbalized understanding and agreed with treatment plan. Orders: Orders Creatinine Today I10 - Essential (primary) hypertension Microalbumin, Random (w Creat) Today R80.9 - Proteinuria, unspecified
[2024-08-26 15:27] VITALS: BP 132/96; PULSE 91; RESP 16; TEMP 36.5; O2SAT 95; BMI 36.6
[2024-08-26 15:33] VITALS: BP 124/92
[2024-08-26 15:43] VITALS: BP 126/84
== END 2024-08-26 15:49 | disposition home or self-care (01) ==
LOC: HO.HMCFM 15:11
PROVIDERS: PCP Nurse Practitioner Family; Visit Provider Nurse Practitioner Family
DX: I10 Essential (primary) hypertension (principal)

== ENCOUNTER → 2024-08-26 15:10 | Outpatient (BNVA) | payer OTHER, SELFPAY | PROVIDERS: PCP Nurse Practitioner Family; Visit Provider Nurse Practitioner Family | DX: Z13.89 Encounter for screening for other disorder (principal) ==

== ENCOUNTER 2024-09-03 14:57 | Outpatient (AMB) | payer OTHER, SELFPAY ==
--- NOTE | 2024-09-03 15:12 | MHC.OFFVIS ---
Intake Visit Reasons: OV-Left knee MRI review Intake Note: Petar is a 49 year old male who presents with complaints of left knee pain and giving way. The patient did undergo right knee arthroscopic surgery approximately 20 years ago after tearing his meniscus. He reports minimal discomfort in his right knee. The patient states that several months ago he injured his left knee when he fell down stairs. He twisted his knee and had acute onset of pain. He has failed the last 6 weeks of conservative treatment which has included a home exercise program, Tylenol and anti-inflammatory medicines. He states that his left knee will give out several times per day. Allergies No Known Allergies Allergy (Verified 08/26/24 15:35) Medication List - Last Reconciled 09/04/24 by Orville Temple MD cholecalciferol (vitamin D3) 25 mcg PO DAILY 90 days folic acid 400 mcg PO DAILY 30 days hydrochlorothiazide 12.5 mg PO DAILY 30 days labetalol 100 mg PO BID 30 days lisinopril 30 mg PO DAILY 30 days [facility] Medical History High blood pressure Surgical History History of knee surgery Family History Mother Alcohol abuse High blood pressure Cervical cancer Father Substance abuse Paternal Grandmother FH: mental illness Sister Asthma Social History Housing: House Patient Tobacco Use Status: Former Tobacco user Cigarette Packs Per Day: 0.5 Cigarettes Per Day: 10 e-Cigarette/Vaping Use: Never Used Second Hand Smoke Exposure: Yes service: No Current occupational status: employed Current occupation: [employer] Current occupational exposures/hazards: No Cognitive needs: No Hearing needs: No Vision needs: No Physical Exam Const Other: Well-nourished well-developed very friendly male awake alert and oriented x3 in no acute distress Extrem Other: Bilateral lower extremity examination shows good capillary refill, no skin lesions noted, normal sensation light touch Left knee examination shows a minimal effusion, minimal crepitus with range of motion, tenderness along his medial joint line, positive Chaparrita's test, no instability Results Reviewed Results Reviewed: Standing full weight-bearing x-rays of the patient's left knee show mild diffuse joint space narrowing, no acute bony abnormalities MRI of the patient's left knee shows mild diffuse degenerative changes as well as a tear of the medial meniscus Assessment & Plan Assessment & Plan (1) Tear of medial meniscus of left knee: Code(s): S83.242A - Other tear of medial meniscus, current injury, left knee, initial encounter Category: Medical Plan Mr. Keen presents with left knee pain and mechanical symptoms due to a medial meniscus tear. I had a lengthy discussion with the patient regarding the treatment options. At this point the patient's symptoms are tolerable to him. He will continue with his activity modifications. If his symptoms do worsen in the future we will further discuss the risks and benefits of left knee arthroscopic surgery. Surgery would involve left knee arthroscopic partial medial meniscectomy. The patient will follow-up on an as-needed basis. Feel free to call me at any time should questions regarding his orthopedic management arise. I spent 20 minutes in reviewing the patient's records and imaging studies, seeing the patient and documenting in the medical record. Coding Level of Care Code Est Pt Level 3 (78684) Complex EM visit Add On G2211 Diagnoses Tear of medial meniscus of left knee S83.242A
== END 2024-09-03 15:22 | disposition home or self-care (01) ==
LOC: HO.HOS 14:57
PROVIDERS: PCP Nurse Practitioner Family; Visit Provider Orthopaedic Surgery
DX: S83.242A Other tear of medial meniscus, current injury, left knee, initial encounter (principal)
CPT/HCPCS: 99213

== ENCOUNTER 2024-09-24 08:48 | Outpatient (REF) | payer OTHER, SELFPAY ==
[2024-09-24 11:11] LABS: Appearance Urine Turbid; Color Urine Yellow; Glucose Urine UA Negative (Negative); Leukocyte Esterase Urine Negative (Negative); Nitrite Urine Negative (Negative); PH 5.5 (5.0-9.0); UMIC TRIGGER UACC YES; Urine Blood Trace (Negative); Urine Ketones Negative (Negative); Urine Protein Trace mg/dL (Neg-Trace)
[2024-09-24 11:14] LABS: Bacteria Urine None Seen (None Seen); Hyaline Casts Urine 0-2 /LPF (0-2); RBC Urine 0-2 /HPF (0-2); Squamous Epithelial Cell Urine 0-2 /HPF (0-2); WBC Urine 0-5 /HPF (0-5)
[2024-09-24 11:50] LABS: Creatinine Urine 145.67 mg/dL
[2024-09-24 11:59] LABS: Alanine Aminotransferase 28 U/L (0-40); Albumin Level 4.4 g/dL (3.5-5.0); Alkaline Phosphatase 61 U/L (39-117); Aspartate Amino Transferase 24 U/L (5-37); Bilirubin Direct 0.2 mg/dL (0.0-0.5); Bilirubin Total 0.6 mg/dL (0.0-1.0); Cholesterol 224 mg/dL (<200); Estimated Glomerular Filt Rate 36; HDL Cholesterol 32 mg/dL (>40); LDL Cholesterol Calculated 165 mg/dL (<100); Total Protein 8.2 g/dL (6.5-8.0); Triglycerides 137 mg/dL (<150)
[2024-09-24 12:17] LABS: Vitamin D 25-OH Total 66.4 ng/mL (>30)
== END 2024-09-24 08:49 | disposition home or self-care (01) ==
LOC: HO.WFDLDS 08:48
PROVIDERS: Referring Provider Physician Assistant Medical; Visit Provider Nurse Practitioner Family
DX: R06.83 Snoring (principal); I10 Essential (primary) hypertension; R80.9 Proteinuria, unspecified; E53.8 Deficiency of other specified B group vitamins; E78.00 Pure hypercholesterolemia, unspecified; R74.01 Elevation of levels of liver transaminase levels; E55.9 Vitamin D deficiency, unspecified; Z00.00 Encounter for general adult medical examination without abnormal findings
CPT/HCPCS: 36415; 80061; 80076; 81001; 81003; 82043; 82306; 82565; 82570; 82746; 83090

== ENCOUNTER → 2024-09-24 15:25 | Outpatient (REF) | payer OTHER, SELFPAY | LOC: HO.SL 15:25 | PROVIDERS: PCP Physician Assistant Medical; Visit Provider Physician Assistant Medical | DX: G47.19 Other hypersomnia (principal) | CPT/HCPCS: 95806 ==

== ENCOUNTER → 2024-09-24 15:31 | Outpatient (BNV) | payer OTHER, SELFPAY | PROVIDERS: PCP Physician Assistant Medical; Visit Provider Psychiatry & Neurology Neurology | DX: G47.33 Obstructive sleep apnea (adult) (pediatric) (principal); G47.10 Hypersomnia, unspecified | CPT/HCPCS: 95806 ==

== ENCOUNTER 2024-09-26 07:34 | Outpatient (AMB) | payer OTHER, SELFPAY ==
--- NOTE | 2024-09-26 07:50 | MHC.PC.OV ---
Vital Signs 09/26/24 07:57 Height 5 ft 7 in Weight 230 lb 8 oz BMI 36.1 BP 128/85 Blood Pressure Location Rt brachial Position Sitting Respiration 16 Pulse 79 Pulse Source Pulse Oximeter Temp 98.1 F Temp Source Oral Pulse Oximetry (%) 98 Oxygen Delivery Method Room Air Intake Visit Reasons: 1 mos CPE, HTN, labs review Intake Note: patient here for CPE, HTN, nd lab review Records Assistant Required: No Allergies No Known Allergies Allergy (Verified 09/26/24 08:08) Medication List - Last Reconciled 09/26/24 by Sharmin Leo CNP cholecalciferol (vitamin D3) 25 mcg PO DAILY 90 days folic acid 400 mcg PO DAILY 30 days hydrochlorothiazide 12.5 mg PO DAILY 30 days labetalol 100 mg PO BID 30 days lisinopril 30 mg PO DAILY 30 days Tobacco use date assessed: 09/26/24 Dental Screening Dental Screen Date: 09/26/24 Did you have a dental visit in the last 12 months?: Yes Did you have a dental problem in the last 6 months where you did not have access to dental care?: No Was dental information given to patient?: Patient has dentist HPI HPI Comments History of Present Illness Details 49-year-old male presents for an extended physical exam. Acute issue(s) - Chronic left knee pain for the past 2-3 months. Recent MRI revealed meniscus tear left knee. He has surgery scheduled in 10/21/2023. Past Medical History - HTN, hypercholesterolemia, meniscus tear left knee, vitamin-D deficiency, folate deficiency Surgical History - Right knee arthroscopic surgery 2013 Family History - Dad: BEATRIZ - Mom: Hypertension, alcohol abuse, cervical cancer - PGM: Dementia Social History - Former smoker, smoked 0.5 ppd x 10-15 yrs, quit in 2003. Does not vape. Drinks 2-3 glass of vodka 1-2 days/wk. Denies recreational drug use - Has been making healthy dietary choices, including low sodium. Active but does not exercise due to left knee pain. Has trouble maintaining asleep but not falling asleep; he snores, had home sleep study done this week and awaiting results Health maintenance - Last eye exam was 5 years ago. 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 - Last dental visit was 2 days ago for wisdom tooth removal - Last tetanus vaccine was more than 10 years ago; declines vaccination at this time - Has not been vaccinated for the flu this season; declines vaccination at this time [facility] Medical History High blood pressure Surgical History History of knee surgery Family History Mother Alcohol abuse High blood pressure Cervical cancer Father Substance abuse Paternal Grandmother FH: mental illness Sister Asthma Social History Housing: House Patient Tobacco Use Status: Former Tobacco user Cigarette Packs Per Day: 0.5 Cigarettes Per Day: 10 e-Cigarette/Vaping Use: Never Used Second Hand Smoke Exposure: Yes service: No Current occupational status: employed Current occupation: [employer] Current occupational exposures/hazards: No Cognitive needs: No Hearing needs: No Vision needs: No Questionnaire PHQ-9 Over the last 2 weeks, how often have you been bothered by any of the following problems? 1. Little interest or pleasure in doing things: more than half the days 2. Feeling down, depressed, or hopeless: not at all 3. Trouble falling or staying asleep, or sleeping too much: nearly every day 4. Feeling tired or having little energy: several days 5. Poor appetite or overeating: not at all 6. Feeling bad about yourself - or that you are a failure or have let yourself or your family down: not at all 7. Trouble concentrating on things, such as reading the newspaper or watching television: not at all 8. Moving or speaking so slowly that other people could have noticed. Or the opposite - being so fidgety or restless that you have been moving around a lot more than usual: not at all 9. Thoughts that you would be better off or of hurting yourself in some way: not at all Total score: 6 Depression Screening Interpretation: Positive Depression Screening Done: Yes 27813 - PHQ-9 Billing: Yes Source: Developed by Drs. Mahamed Rodriguez, Elyse Donaldson, Micheal Gruloln and colleagues, with an educational amirah from [employer]. Thrive Questionnaire Date Thrive assessed: 09/26/24 I am a: Patient What is your living situation today?: I have a steady place to live Within the past 12 months, did the food you bought not last and you didn't have the money to get more?: Never true Within the past 12 months, did you worry whether your food would run out before you got money to buy more?: Never true Do you have trouble paying for medicines?: No Do you have trouble getting transportation to medical appointments?: No Do you have trouble paying your heating and electricity bill?: No Do you have trouble taking care of your child, family member or friend?: No Do you have trouble with day-to-day activities such as bathing, preparing meals, shopping, managing finances, etc.?: No Are you currently unemployed and looking for a job?: No Are you interested in more education?: No Please select the resources that you would like help with: None Currently or been in a relationship where the following occur: No concerns reported and I choose not to answer THRIVE Score: 0 AUDIT C Alcohol Use Questionnaire (AUDIT-C) 1. How often do you have a drink containing alcohol?: 2-4 times a month 2. How many drinks containing alcohol do you have on a typical day when you are drinking?: 1 or 2 3. How often do you have six or more drinks on one occasion?: Never Total Score: 2 Score Reviewed/Action Taken: Yes COREEN-7 AMB Questionnaire COREEN-7 Date COREEN - 7 assessed: 09/26/24 Feeling nervous, anxious, or on edge: 0 = Not at all Not being able to stop or control worryin = Not at all Worrying too much about different things: 0 = Not at all Trouble relaxin = Not at all Being so restless that it is hard to sit still: 0 = Not at all Becoming easily annoyed or irritable: 0 = Not at all Feeling afraid as if something awful might happen: 0 = Not at all Total COREEN-7 score (0-4 normal; 5-9 mild; 10-14 moderate; 15-21 severe): 0 Source: Developed by Drs. Mahamed Rodriguez, Elyse Donaldson, Micheal Grullon and colleagues, with an educational amirah from [employer]. COREEN-7 Assessment Billing COREEN-7 Assessment Tool: COREEN-7 Assessment 70641 Review of Systems Const Details: Denies chills, Denies fatigue, Denies fever(s), Denies headache(s) and Denies weakness HEENT Denies change in vision, Denies dizziness, Denies headache(s), Denies hearing loss, Denies nasal congestion, Denies sinus pain, Denies sinus pressure and Denies sore throat Card Denies chest pain, Denies lightheadedness, Denies dyspnea and Denies other (palpitations) Resp Denies cough, Denies dyspnea and Denies wheezing GI Denies abdominal pain, Denies melena, Denies hematochezia, Denies change in bowel habits, Denies dyspepsia and Denies nausea Denies hematuria and Denies dysuria Musc Reports as per HPI Skin/Breast Denies rash, Denies unusual bruising and Denies wounds Neuro Denies abnormal gait, Denies dizziness, Denies headache(s), Denies memory loss, Denies numbness, Denies Sensory deficit (Neuro), Denies tingling and Denies weakness Psych Denies anxiety, Denies depression and Denies memory loss Endo Denies cold intolerance, Denies fatigue, Denies heat intolerance, Denies polydipsia and Denies polyuria Guido/Lymph Denies easy bleeding and Denies easy bruising Aller/Immun Denies wheezing Physical exam (Primary Care) BMI result Body Mass Index 36.1 Tobacco/Smoking Status: Tobacco use Status Tobacco use date assessed 09/26/24 09/26/24 07:57 Patient Tobacco Use Status Former Tobacco user 09/26/24 07:51 e-Cigarette/Vaping Use Never Used 09/26/24 07:51 Depression Screening Interpretation: Positive Thrive Assessment: Date of Thrive Assessment Date Thrive assessed 07/08/24 09/26/24 07:51 Currently or been in a relationship where the following occur: No concerns reported and I choose not to answer Const Other: General: no acute distress, well developed, alert and awake Nutritional Appearance: well nourished Orientation/consciousness: patient oriented x3 HENMT Head: Yes normocephalic and Yes atraumatic Ears: hearing grossly normal bilaterally and TM's normal bilaterally General nose exam: Normal external nose present and Normal nares present Mouth: Normal oral and palatal mucosa present and moist mucous membranes Teeth and gingiva: dentition normal Throat: Yes oropharynx normal Eyes Pupils: Equal, round and reactive pupils present and Pupil accommodation reflex normal EOM: EOMs intact bilaterally Neck Neck: Yes normal visual inspection, Yes no lymphadenopathy and Yes trachea midline Thyroid: Thyroid normal Carotids: no bruits Lymphatic: no lymphadenopathy noted Chest Chest palpation & inspection: normal inspection of the chest Resp Effort & Inspection: normal respiratory effort Auscultation: clear to auscultation bilaterally Cardio Rate: regular rate Rhythm: regular rhythm Heart sounds: S1 normal heart sound present, S2 normal heart sound present, no gallops, no murmurs and no rubs Bruits: no abdominal aortic bruits and no carotid bruits GI Palpation (GI): No Abdominal aortic bruit present, Soft to palpation, nontender, No hepatosplenomegaly present and No Rebound tenderness present Auscultation: normal bowel sounds General: Yes no CVA tenderness Back/Spine/Pelvis Back: no CVA tenderness Cervical Spine: cervical ROM normal and No Cervical spine tenderness Thoracic/Lumbar Spine: thoraco-lumbar ROM normal, No pain with thoraco-lumbar ROM, No thoracic spinal tenderness and No lumbar spinal tenderness Skin General: warm and dry. Normal skin color. Normal skin turgor Lesions: no lesions Rashes: no rashes Trauma: no lacerations or abrasions Wounds: no wounds Nails: normal Neuro General: patient oriented x3, gait normal and CN's II-XI intact bilaterally Cranial nerves: Yes Equal, round and reactive pupils present Cognition (Neuro): normal cognition Gait exam (Neuro): Normal gait present Motor exam (neuro): 5/5 motor strength present throughout Sensory Exam: No Sensory deficit (Neuro) Deep tendon reflexes (DTR's): Right patellar reflex intensity grade: 2+ and Left patellar reflex intensity grade: 2+ Extrem General: Yes normal to inspection, No edema and No calf tenderness Psych Appearance: grossly normal Affect: normal affect Attitude: cooperative Thought process: Normal thought process present Coding Level of Care Code Est Pt Level 3 (76290) Est Pt Prev Care 40-64y(01032) Diagnoses Normal physical examination, routine Z00.00 High blood pressure I10 Hypercholesterolemia E78.00 Kidney disease N28.9 Sleep disturbance G47.9 Acute pain of left knee M25.562 Chronicity: acute Additional Codes COREEN-7 Assessment Billing - COREEN-7 Assessment Tool: COREEN-7 Assessment 98182 ([id number]) PHQ-9 - 42439 - PHQ-9 Billing: Yes ([id number]) Assessment & Plan Assessment & Plan (1) Normal physical examination, routine: Code(s): Z00.00 - Encounter for general adult medical examination without abnormal findings Category: Medical Plan: No significant functional limitation noted. Continue current treatment regimen. Follow-up as planned. Verbalized understanding and agreed with the plan. (2) High blood pressure: Code(s): I10 - Essential (primary) hypertension Category: Medical Plan: Resting blood pressure is 128/85, within goal of less than 140/90. Low-sodium diet encouraged. Continue current treatment regimen. Follow-up in 2 months or sooner with symptoms or concerns. Verbalized understanding and agreed with the plan. (3) Hypercholesterolemia: Code(s): E78.00 - Pure hypercholesterolemia, unspecified Category: Medical Plan: Recent total cholesterol is elevated, 224 form 206, LDL is elevated, 165 from 137, LDL is low, 32 from 40. He consumes diary and pizza sometimes. Advised to limit foods high in saturated fat and avoid foods high in trans fat. Routine exercise encouraged. Fast for 10-12 hours, may drink water, and perform lipid panel blood work 2-3 days before next visit. Follow-up in 2 months. Verbalized understanding and agreed with the plan. (4) Kidney disease: Code(s): N28.9 - Disorder of kidney and ureter, unspecified Category: Medical Plan: Recent creatinine level is elevated, 1.98, previous level was 1.46, current GFR is 36. Urine microalbumin/creatinine ratio has normalized, 36. Adequate hydration encourage. Will recheck kidney function in 1 week and will make changes as needed. Referred to [facility]. Follow up as needed. Verbalized understanding and agreed with the plan. (5) Sleep disturbance: Code(s): G47.9 - Sleep disorder, unspecified Category: Medical Plan: Has trouble maintaining asleep but not falling asleep; he snores, had home sleep study done this week and awaiting results. Instructed on sleep hygiene. Follow up with sleep medicine as planned. Verbalized understanding and agreed with the plan. (6) Knee pain, left: Code(s): M25.562 - Pain in left knee Category: Medical Qualifiers: Chronicity: acute Qualified Code(s): M25.562 - Pain in left knee Plan: Chronic left knee pain for the past 2-3 months. Recent MRI revealed meniscus tear left knee. He has surgery scheduled in 10/21/2023. May take Tylenol ibuprofen for pain or discomfort. Warm/cool compresses encouraged. Follow-up with Ortho surgery as planned. Verbalized understanding and agreed with treatment plan. Orders: Orders Basic Metabolic Panel 1 Week N28.9 - Disorder of kidney and ureter, unspecified Lipid Panel 2 Months E78.00 - Pure hypercholesterolemia, unspecified Referrals Nephrology Referral N28.9 - Disorder of kidney and ureter, unspecified
[2024-09-26 07:57] VITALS: BP 128/85; PULSE 79; RESP 16; TEMP 36.7; O2SAT 98; BMI 36.1
== END 2024-09-26 08:31 | disposition home or self-care (01) ==
LOC: HO.HMCFM 07:34
PROVIDERS: PCP Nurse Practitioner Family; Visit Provider Nurse Practitioner Family
DX: Z00.00 Encounter for general adult medical examination without abnormal findings (principal); I10 Essential (primary) hypertension; E78.00 Pure hypercholesterolemia, unspecified; N28.9 Disorder of kidney and ureter, unspecified; G47.9 Sleep disorder, unspecified; M25.562 Pain in left knee

== ENCOUNTER → 2024-09-26 07:34 | Outpatient (BNVA) | payer OTHER, SELFPAY | PROVIDERS: PCP Nurse Practitioner Family; Visit Provider Nurse Practitioner Family | DX: Z00.00 Encounter for general adult medical examination without abnormal findings (principal); I10 Essential (primary) hypertension; E78.00 Pure hypercholesterolemia, unspecified; N28.9 Disorder of kidney and ureter, unspecified; G47.9 Sleep disorder, unspecified; M25.562 Pain in left knee | CPT/HCPCS: 96127 ==

== ENCOUNTER 2024-10-09 14:40 | Outpatient (AMB) | payer OTHER, SELFPAY ==
--- NOTE | 2024-10-09 14:48 | A.OFFVIS_ITS ---
Vital Signs 10/09/24 14:52 Height 5 ft 7 in Weight 230 lb BMI 36.0 Intake Visit Reasons: Left knee pain and giving way Intake Note: Petar is a 49 year old male who presents with complaints of left knee pain and giving way. The patient did undergo right knee arthroscopic surgery approximately 20 years ago after tearing his meniscus. He reports minimal discomfort in his right knee. The patient states that several months ago he injured his left knee when he fell down stairs. He twisted his knee and had acute onset of pain. He has failed the last 6 weeks of conservative treatment which has included a home exercise program, Tylenol and anti-inflammatory medicines. He states that his left knee will give out several times per day. Allergies No Known Allergies Allergy (Verified 10/09/24 14:53) Medication List - Last Reconciled 10/09/24 by Orville Temple MD cholecalciferol (vitamin D3) 25 mcg PO DAILY 90 days folic acid 400 mcg PO DAILY 30 days hydrochlorothiazide 12.5 mg PO DAILY 30 days hydromorphone (Dilaudid) 4 mg PO Q6H PRN labetalol 100 mg PO BID 30 days lisinopril 30 mg PO DAILY 30 days PFSH Medical History High blood pressure Surgical History History of knee surgery Family History Mother Alcohol abuse High blood pressure Cervical cancer Father Substance abuse Paternal Grandmother FH: mental illness Sister Asthma Social History Housing: House Patient Tobacco Use Status: Former Tobacco user Cigarette Packs Per Day: 0.5 Cigarettes Per Day: 10 e-Cigarette/Vaping Use: Never Used Second Hand Smoke Exposure: Yes service: No Current occupational status: employed 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 Current occupational exposures/hazards: No Cognitive needs: No Hearing needs: No Vision needs: No Physical Exam Vital Signs: BMI result Body Mass Index 36.0 Const Other: Well-nourished well-developed very friendly male awake alert and oriented x3 in no acute distress Extrem Other: Bilateral lower extremity examination shows good capillary refill, no skin lesions noted, normal sensation light touch Left knee examination shows a minimal effusion, minimal crepitus with range of motion, tenderness along his medial joint line, positive Chaparrita's test, no instability Results Reviewed Results Reviewed: Standing full weight-bearing x-rays of the patient's left knee show mild diffuse joint space narrowing, no acute bony abnormalities MRI of the patient's left knee shows mild diffuse degenerative changes as well as a medial meniscus tear Assessment & Plan Assessment & Plan (1) Tear of medial meniscus of left knee: Code(s): S83.242A - Other tear of medial meniscus, current injury, left knee, initial encounter Category: Medical Plan Mr. Keen presents with progressively worsening left knee pain and mechanical symptoms due to a medial meniscus tear. I had a lengthy discussion with the patient regarding the treatment options. At this point he has failed continued non operative treatments. The risks and benefits of left knee arthroscopic surgery were discussed at length with the patient. The patient wishes to proceed with surgery. Surgery will involve left knee arthroscopic partial medial meniscectomy. The patient does understand that he may not get 100% relief of his symptoms depending on the severity of his degenerative changes. The patient was given a prescription for Dilaudid at his preoperative appointment. He will follow-up as instructed. Feel free to call me at any time should questions regarding his orthopedic management arise. I spent 20 minutes in reviewing the patient's records and imaging studies, seeing the patient and documenting in the medical record. Medications: New hydromorphone (Dilaudid) Partial Fill upon patient request. Take 1/2 tab every 6 hours as needed for pain following your left knee surgery 4 mg PO Q6H PRN 10 tabs 0RF pain Coding Level of Care Code Est Pt Level 3 (57751) Complex EM visit Add On G2211 Diagnoses Tear of medial meniscus of left knee S83.242A
[2024-10-09 14:52] VITALS: BMI 36.0
== END 2024-10-09 15:15 | disposition home or self-care (01) ==
LOC: HO.HOS 14:40
PROVIDERS: PCP Nurse Practitioner Family; Visit Provider Orthopaedic Surgery
DX: S83.242A Other tear of medial meniscus, current injury, left knee, initial encounter (principal)
CPT/HCPCS: 99213

== ENCOUNTER 2024-10-20 06:51 | Day surgery (SDC) | payer OTHER, SELFPAY ==
[2024-10-16 11:36] VITALS: BMI 36.0
--- NOTE | 2024-10-16 14:42 | HO.ANESPROP2 ---
Documented by User: Marisol Molina NP 10/16/24 14:48 HPI - Anesthesia Eval Consult details Narrative: 49yo M for Left Knee Arthroscopy with partial medial meniscectomy PCP following htn (meds adjusted) and elevated creat - pending referral to renal PMFSH Active Problems Active Problems: All Active Problems Obesity (BMI 30-39.9) (Acute) Kidney disease (Acute) Normal physical examination, routine (Acute) Tear of medial meniscus of left knee (Acute) Folate deficiency (Acute) Vitamin D deficiency (Acute) Fatigue due to sleep pattern disturbance (Acute) Microalbuminuria (Acute) Hypercholesterolemia (Acute) Transaminitis (Acute) Elevated fasting glucose (Acute) Left ventricular hypertrophy (Acute) High blood pressure (Acute) Laboratory tests ordered as part of a complete physical exam (CPE) (Acute) Snoring (Acute) Sleep disturbance (Acute) Severe uncontrolled hypertension (Acute) Knee pain, left (Acute) Past Medical History Medical History Vitamin D deficiency Hypercholesteremia Folate deficiency Kidney disease High blood pressure Family History Family History Mother Alcohol abuse High blood pressure Cervical cancer Father Substance abuse Paternal Grandmother FH: mental illness Sister Asthma Surgical History Surgical History History of knee surgery Social History Social History Housing: House Patient Tobacco Use Status: Former Tobacco user Cigarette Packs Per Day: 0.5 Cigarettes Per Day: 10 e-Cigarette/Vaping Use: Never Used Second Hand Smoke Exposure: Yes Have you been hit, kicked, punched, or otherwise hurt by someone within the past year? 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 Current occupational exposures/hazards: No Cognitive needs: No Hearing needs: No Vision needs: No Meds Allergies Allergy/AdvReac Type Severity Reaction Status Date / Time oxycodone Allergy Severe Confusion Verified 10/20/24 08:04 Active Medications: Current Medications Cefazolin Sodium/Dextrose (Ancef) 2 gm in 50 mls @ 100 mls/hr IV PREOP ONE Stop: 10/20/24 06:06 Exam Height,Weight and Vital Signs: Height 5 ft 7 in Weight 104.326 kg Pertinent Lab Results Pertinent Lab Results: Laboratory Tests 07/22/24 07/28/24 09/24/24 07:20 07:35 08:50 WBC 6.4 Hgb 16.6 Hct 48.1 Plt Count 221 Sodium 138 Potassium 4.4 Chloride 101 Carbon Dioxide 28 BUN 22 H Creatinine 1.98 H Narrative Narrative: EKG 08/2024 NSR LAD LVH Prolonged QT ECHO Conclusions: - 1. Normal LV ejection fraction 55-60% with mild LVH with grade 1 diastolic dysfunction 2. Mildly dilated left atrium 3. Normal cardiac valvular Dopplers 4. Mildly dilated ascending aorta at 3.9 cm 5. No gross pericardial effusion Assessment and Plan Assessment Anesthesia Assessment: Chart Reviewed Documented by User: Monica Castellanos MD 10/20/24 08:16 PMFSH Past Medical History Medical History Vitamin D deficiency Hypercholesteremia Folate deficiency Kidney disease High blood pressure Family History Family History Mother Alcohol abuse High blood pressure Cervical cancer Father Substance abuse Paternal Grandmother FH: mental illness Sister Asthma Family history of problems with anesthesia: No Surgical History Surgical History History of knee surgery History of Problems with Anesthesia: No Social History Social History Housing: House Patient Tobacco Use Status: Former Tobacco user Cigarette Packs Per Day: 0.5 Cigarettes Per Day: 10 e-Cigarette/Vaping Use: Never Used Second Hand Smoke Exposure: Yes Have you been hit, kicked, punched, or otherwise hurt by someone within the past year? If so, by whom?: No Are you DNR?: No Advance Directives: No Advance Directives Information Provided: Yes service: No Current occupational status: employed Current occupation: [employer] Current occupational exposures/hazards: No Cognitive needs: No Hearing needs: No Vision needs: No Meds Allergies Allergy/AdvReac Type Severity Reaction Status Date / Time oxycodone Allergy Severe Confusion Verified 10/20/24 08:04 Exam Airway Mallampati Class: II TM Dist: >3cm Neck ROM: Full Heart: rrr Lungs: cta Assessment and Plan Assessment Anesthesia Assessment: Anesthesia Plan Discussed Final Anesthetic Review Family History of Problems with Anesthesia: No History of Problems with Anesthesia: No NPO: Yes ASA Class: III Final Preanesthetic Review: No Changes in Pt Med Stat, Meds/Allgs Chart Reviewed, Consent Obtained/Reviewed and Anes Risks/Benef Reviewed Patient Risk: Intermediate Procedure Risk: Low Anesthetic Plan Anesthetic Plan: GA Disposition: Standard PACU
[2024-10-20] VITALS (10 sets, daily range): BP systolic 111–151; BP diastolic 53–82; PULSE 64–90; RESP 14–20; TEMP 36.1–36.9; O2SAT 95–99; BMI 36.4
[2024-10-20] MEDS: Lactated Ringers 1,000 ML 100 ML IVCONT (07:10)
[2024-10-20 07:41] LABS: Blood Urea Nitrogen 32 mg/dL (9-16); Estimated Glomerular Filt Rate 30
--- NOTE | 2024-10-20 10:10 | PM.OP ---
Brief Operative Note Date of Service: 10/20/24 Pre-op diagnosis: Left knee medial meniscus tear, left knee degenerative joint disease Post-op diagnosis: same Procedure: left knee arthroscopic partial medial meniscectomy, left knee arthroscopic chondroplasty of the undersurface of the patella Implants: none Surgeon: Orville Temple MD Anesthesia: GLMA Was an Supervisor [employer] used for this Procedure?: No Estimated blood loss (mL): 10 Pathology: none sent Condition: stable Disposition: PACU
--- NOTE | 2024-10-20 10:11 | P.OP_ITS ---
Operative Note Operative Note Date of Service: 10/20/24 Narrative: After the patient was identified as Becky Keen and his left knee was initialed by myself they were brought to the operating room where general anesthesia was induced by the anesthesiologist in routine fashion. The patient was given 2 g of IV Ancef preoperatively for infection prophylaxis. The patient's left lower extremity was prepped and draped in sterile fashion. A formal time-out was completed. Marcaine was injected into the planned incision sites as well as the patient's left knee joint. A #11 scalpel blade was used to make an anterolateral portal 1 cm proximal to the joint line and 1 cm lateral to the patellar tendon. Blunt trocar technique was used to enter the suprapatellar pouch with the knee in extension. Diagnostic arthroscopy showed multiple bands of thickened plica which would be excised at the end of the procedure. There were no loose bodies or abnormalities found in either the medial or lateral gutters. The articular surface of the patella showed diffuse grades 1 and 2 degenerative changes. The trochlear groove articular surface showed minimal degenerative changes. The patient's knee was flexed to 45 degrees and a valgus force was placed upon it. The medial compartment was entered. An anteromedial portal was made 1 cm proximal to the joint line and 1 cm medial to the patellar tendon. Probing of the medial meniscus showed a radial tear of the anterior horn. A partial medial meniscectomy was performed using the arthroscopic shaver. Following the partial meniscectomy the remainder of the meniscus tissue was stable. There were diffuse grade 1 degenerative changes of the medial femoral condyle as well as grade 1 degenerative changes of the medial tibial plateau. The patient's knee was placed into a neutral position. There was no injury to the anterior cruciate ligament. The patient's knee was then placed in the figure of 4 position and the lateral compartment was entered. There was no evidence of lateral meniscus tearing. There were minimal degenerative changes of the lateral femoral condyle and lateral tibial plateau. The patient's knee was once again brought into extension and the suprapatellar pouch was entered. The arthroscopic shaver and the ArthroCare Wand were used to excise the thickened bands of plica. The undersurface of the patella was then made smooth using the arthroscopic shaver. The articular surface of the trochlear groove w as already smooth so no chondroplasty was indicated. The knee joint was irrigated and then drained. All arthroscopic instruments were removed. The 2 portals were closed with 3-0 nylon interrupted suture. The knee joint was injected with Marcaine. Dry sterile dressing and Rudy bandages were placed over the patient's knee. The patient was awoken and extubated in the operating room. The patient was transferred to the recovery room in stable condition.
[2024-10-20] MEDS: fentaNYL citrate/PF 100 MCG/2 ML VIAL 25 MCG IVPUSH ×2 (10:25→10:30)
[2024-10-20] MEDS: cefTRIAXone sodium 1 GM VIAL IVPUSH (10:28)
== END 2024-10-20 11:53 | disposition home or self-care (01) ==
PROVIDERS: Nurse Practitioner; Visit Provider Orthopaedic Surgery
PROC: (CPT 29870; principal; 2024-10-20 09:00)
DX: S83.242A Other tear of medial meniscus, current injury, left knee, initial encounter (principal); M67.52 Plica syndrome, left knee; M25.562 Pain in left knee; M17.12 Unilateral primary osteoarthritis, left knee; M23.52 Chronic instability of knee, left knee; W10.9XXA Fall (on) (from) unspecified stairs and steps, initial encounter; X50.1XXA Overexertion from prolonged static or awkward postures, initial encounter; Y93.9 Activity, unspecified; Y92.9 Unspecified place or not applicable; Y99.9 Unspecified external cause status; I10 Essential (primary) hypertension; Z79.899 Other long term (current) drug therapy; Z98.890 Other specified postprocedural states; Z87.891 Personal history of nicotine dependence
CPT/HCPCS: 29881; 36415; 82565; 84520; J0131; J0171; J0690; J0696; J1100; J1885; J2003; J2371; J2405; J2704; J2795; J3010

== ENCOUNTER → 2024-10-20 06:51 | Outpatient (BNV) | payer OTHER, SELFPAY | PROVIDERS: Visit Provider Orthopaedic Surgery | DX: S83.242A Other tear of medial meniscus, current injury, left knee, initial encounter (principal) | CPT/HCPCS: 29881 ==

== ENCOUNTER 2024-11-06 10:45 | Outpatient (AMB) | payer OTHER, SELFPAY ==
[2024-11-06 11:02] VITALS: BMI 36.3
--- NOTE | 2024-11-06 11:02 | A.OFFVIS_ITS ---
Vital Signs 11/06/24 11:02 Height 5 ft 7 in Weight 232 lb BMI 36.3 Intake Visit Reasons: PO-Lt Knee 10/20/24 Intake Note: Petar is a 49 year old male who presents today for his first post-operative visit after undergoing a left knee arthroscopy on 10/20/24. He reports mild intermittent discomfort in his left knee. He denies any fevers or chills. He continues with his home stretching program. Allergies oxycodone Allergy (Severe, Verified 11/06/24 11:09) Confusion Medication List - Last Reviewed 11/06/24 by BAYLEE Pink cholecalciferol (vitamin D3) 25 mcg PO DAILY 90 days folic acid 400 mcg PO DAILY 30 days hydrochlorothiazide 12.5 mg PO DAILY 30 days labetalol 100 mg PO BID 30 days lisinopril 30 mg PO DAILY 30 days [facility] Medical History Vitamin D deficiency Hypercholesteremia Folate deficiency Kidney disease High blood pressure Surgical History History of knee surgery Family History Mother Alcohol abuse High blood pressure Cervical cancer Father Substance abuse Paternal Grandmother FH: mental illness Sister Asthma Social History Housing: House Patient Tobacco Use Status: Former Tobacco user Cigarette Packs Per Day: 0.5 Cigarettes Per Day: 10 e-Cigarette/Vaping Use: Never Used Second Hand Smoke Exposure: Yes service: No Current occupational status: employed Current occupation: [employer] Current occupational exposures/hazards: No Cognitive needs: No Hearing needs: No Vision needs: No Physical Exam Vital Signs: BMI result Body Mass Index 36.3 Extrem Other: Left knee examination shows that the surgical incisions are healing well, no erythema, mild discomfort with range of motion Assessment & Plan Assessment & Plan (1) Knee pain, left: Code(s): M25.562 - Pain in left knee Category: Medical Qualifiers: Chronicity: acute Qualified Code(s): M25.562 - Pain in left knee Plan Petar is doing well after undergoing left knee arthroscopic surgery on 10/20/2024. His sutures were removed and Steri-Strips placed over his incisions. He will gradually progress to activities as tolerated. I will clear him to return to work once his discomfort and strength allow him to do so. He will contact me prior to his follow-up appointment in 3 months should any questions or concerns arise. Feel free to call me at any time should questions regarding his orthopedic management arise. Coding Level of Care Code Global (88955) Diagnoses Acute pain of left knee M25.562 Chronicity: acute
== END 2024-11-06 11:17 | disposition home or self-care (01) ==
LOC: HO.HOS 10:46
PROVIDERS: PCP Nurse Practitioner Family; Visit Provider Orthopaedic Surgery
DX: M25.562 Pain in left knee (principal)
CPT/HCPCS: 99024

== ENCOUNTER → 2024-11-06 10:45 | Outpatient (BNVA) | payer OTHER, SELFPAY | PROVIDERS: PCP Nurse Practitioner Family; Visit Provider Orthopaedic Surgery ==

== ENCOUNTER 2024-11-14 14:58 | Outpatient (AMB) | payer OTHER, SELFPAY ==
[2024-11-14 14:59] VITALS: BMI 36.3
--- NOTE | 2024-11-14 14:59 | A.OFFVIS_ITS ---
Vital Signs 11/14/24 14:59 Height 5 ft 7 in Weight 232 lb BMI 36.3 Intake Visit Reasons: 3 mo follow up Intake Note: Patient presents follow up Sleep. Labs/HST in chart(AHI-13, LUCIE-73%. Trial APAP5-20cm) Allergies oxycodone Allergy (Severe, Verified 11/14/24 15:02) Confusion HPI Comments Details: 49 year old male with L.Ventricular hypertrophy presents for a f/u for VINNY. HST was c/w obstructive sleep apnea AHI is 13.1 and OAI 10.9/hr Oxygen Nadirs to 73%. Interim Hx: On October 20 2024, he had L. Knee surgery laproscopically for meniscus tear. Now he has lost 30lbs. FH + for dementia, and mother in her 70s has cancer. BP is being managed on 3 medications. He is sleeping restlessly, kicks and tosses a lot, he sleeps prone. He complaints of daily fatigue, despite various strategies with his cpap machine use for 2 weeks, he is very uncomfortable and interested in [facility] therapy. He goes to bed at multiple times, wakes up around 4-5am with 1-2 bathroom breaks. His c/o his loud snoring and talking in his sleep. RLS Symptoms: He has restless legs which cause him to toss and turn all night long, he feels like he is running in his sleep , and has difficulty falling asleep, he declines a Dopamine Agonist today would like to try Magnalife topically and a weighted blanket. He denies morning headaches. He denies parasomnias. Memory is stable and he is trying to manage his weight. He is walking around the house not walking any distances yet. He drinks alcohol socially, denies smoking, drinks plenty of water daily. 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 Current occupational exposures/hazards: No Cognitive needs: No Hearing needs: No Vision needs: No Physical Exam Vital Signs: BMI result Body Mass Index 36.3 Const General: cooperative and comfortable Nutritional Appearance: obese Orientation/consciousness: patient oriented x3 HEENT Face and sinus: Yes normal facial exam and Yes face symmetric Teeth and gingiva: other ([place]i score is 4) Eyes Pupils: Equal, round and reactive pupils present Neck Neck: Yes full ROM and Yes supple Resp Effort & Inspection: normal respiratory effort and able to speak in complete sentences Neuro General: patient oriented x3, moves all extremities and other (Limps and leans to the right. ) Cranial nerves: Yes CN's II-XII intact bilaterally, Yes Facial sensation intact/muscles of mastication intact, Yes Equal, round and reactive pupils present, Yes Normal accommodation reflex present, Yes Bilaterally intact EOM present, Yes Normal facial strength present, Yes Midline tongue present, Yes Ability to bilaterally rotate head present and Yes Ability to bilaterally elevate shoulders present Cognition (Neuro): normal cognition Gait exam (Neuro): Other gait observations present (Leans to the right d/t L. knee injury.) Motor exam (neuro): 5/5 motor strength present throughout and Normal motor muscle tone present throughout Psych Appearance: grossly normal Attitude: cooperative Thought process: Normal thought process present Thought content: Normal thought content present Results Reviewed Results Reviewed: VINNY HST c/w AHI is 13.1 and OAI 10.9/hr Oxygen Nadirs to 73% Assessment & Plan Assessment & Plan (1) VINNY (obstructive sleep apnea): Code(s): G47.33 - Obstructive sleep apnea (adult) (pediatric) Category: Medical (2) RLS (restless legs syndrome): Code(s): G25.81 - Restless legs syndrome Category: Medical (3) Snoring: Code(s): R06.83 - Snoring Category: Medical (4) Snoring: Code(s): R06.83 - Snoring Category: Medical (5) Fatigue due to sleep pattern disturbance: Code(s): R53.83 - Other fatigue; G47.9 - Sleep disorder, unspecified Category: Medical Plan VINNY HST c/w AHI is 13.1 and OAI 10.9/hr Oxygen Nadirs to 73%, picked up cpap 2 weeks ago. PSG r/o RLS/ PLMD may use weighted blanket and magnalife toplically/. Fatigue Labs pending to r/o deficiencies ENT referral [facility] therapy. Orders: Orders RT PSG in-lab sleep study 11/14/24 G47.61 - Periodic limb movement disorder TSH reflex Free T4 11/14/24 G25.81 - Restless legs syndrome Methylmalonic Acid 11/14/24 G25.81 - Restless legs syndrome, G47.9 - Sleep disorder, unspecified, R53.83 - Other fatigue Homocysteine 11/14/24 G25.81 - Restless legs syndrome, G47.9 - Sleep disorder, unspecified, R53.83 - Other fatigue Vitamin B12 and Folate 11/14/24 G25.81 - Restless legs syndrome Ferritin 11/14/24 G25.81 - Restless legs syndrome Referrals Ear/Nose/Throat Referral G47.33 - Obstructive sleep apnea (adult) (pediatric) Medications: Refilled cholecalciferol (vitamin D3) 25 mcg PO DAILY 90 tabs 1RF 90 days Patient Instructions: Sleep Hygiene provided: set a scheduled bedtime and wake time to help regulate the circadian rhythm and balance the release of pituitary hormones. Sleep in a dark room, temperatures below 68 degrees, and no devices n bed. Limit caffeinated products 6 hours prior to bed, and limit fluids 2-4 hours prior to bed. Gentle night yoga, diffusing essential oils, and playing soft music can be relaxing. Continue to use cpap for >4 hours daily at a minimum, it has only been two weeks since beginning cpap use, lets try it for a few months. Wash face mask, hoses, change filters and fill reservoir with water. Coding Level of Care Code Est Pt Level 4 (69831) Diagnoses VINNY (obstructive sleep apnea) G47.33 RLS (restless legs syndrome) G25.81 Snoring R06.83 Fatigue due to sleep pattern disturbance R53.83; G47.9 Time Spent (min) 30 Comment Improving
== END 2024-11-14 15:55 | disposition home or self-care (01) ==
LOC: HO.HSMS 14:59
PROVIDERS: PCP Nurse Practitioner Family; Visit Provider Physician Assistant Medical
DX: G47.33 Obstructive sleep apnea (adult) (pediatric) (principal); G25.81 Restless legs syndrome; R06.83 Snoring; R53.83 Other fatigue; G47.9 Sleep disorder, unspecified
CPT/HCPCS: 99214